=== PATIENT | female | born 1985 | race Caucasian/White ===

== ENCOUNTER 2019-12-23 16:18 | Emergency (ER) | payer OTHER, SELFPAY ==
[2019-12-23 16:28] VITALS: BP 134/85; PULSE 84; RESP 16; TEMP 36.1; O2SAT 100
--- NOTE | 2019-12-23 16:29 | ED.GENADULT ---
HPI - General Adult General Chief complaint: Upper Respiratory Infection Stated complaint: Sore Throat,Congestion Time Seen by Provider: 12/23/19 16:29 Source: patient Mode of arrival: ambulatory Limitations: no limitations History of Present Illness HPI narrative: 34-year-old female patient presents to the [facility] with complaints of cold symptoms that started abruptly yesterday. Patient states that she is been having body aches and just overall not feeling well. Patient states she started having a sore throat today and a stuffy nose. Denies any fevers that she is aware of. Denies any ear pain. Patient denies any coughing, chest pain, shortness of breath or abdominal pain. 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 Denies getting a flu shot this year. Related Data Allergies Allergy/AdvReac Type Severity Reaction Status Date / Time No Known Allergies Allergy Verified 11/24/19 16:34 Review of Systems Review of Systems: Narrative: CONSTITUTIONAL: Denies fever, chills, or sweats. EYES: Denies visual changes, redness, or discharge. ENT: Positive rhinorrhea, congestion, sore throat, denies otalgia. CARDIOVASCULAR: Denies chest pain, palpitations, or edema. RESPIRATORY: Denies cough or dyspnea. GASTROINTESTINAL: Denies abdominal pain, nausea, vomiting, or diarrhea. GENITOURINARY: Denies dysuria or hematuria. SKIN: Denies rash or itching. MUSCULOSKELETAL: Denies back pain, joint pain, or myalgia. NEUROLOGIC: Denies headache, numbness, or weakness. PSYCHIATRIC: Denies anxiety or depression. [facility] Past Medical History Medical History Arthritis Chlamydia GERD (gastroesophageal reflux disease) Injury of small toe Kidney stones Seasonal allergies Surgical History Surgical History H/O dilation and curettage H/O tubal ligation Family History Family History Father Hypertension Mother Hypertension Grandparent Hypertension Cerebrovascular accident Family history of malignant neoplasm of breast Family history of coronary artery disease Other Family history of malignant neoplasm of uterus Social History Social History Smoking status: Former smoker Alcohol intake: never Comments At the time of my signature I agree with nursing past medical history, surgical, social, and family history. There is no relevant family history pertinent to the presenting complaint. Exam Narrative: Exam Narrative: GENERAL: Well-appearing, well-nourished, and in no acute distress. HEAD: Normocephalic, atraumatic. No tenderness noted to frontal and maxillary sinuses on palpation. EYES: PERRLA and EOMI. ENT: Nares with erythema and edema noted bilaterally, patent, no rhinorrhea or epistaxis. Mucous membranes moist. Posterior pharynx does have some petechiae noted but no tonsil enlargement no exudates or lesions present. Bilateral TMs are clear with no erythema or foreign bodies in the canal. NECK: Supple. No lymphadenopathy CHEST: Clear to auscultation. No respiratory distress. HEART: Regular rate and rhythm. No murmur heard. Normal peripheral pulses. ABDOMEN: Soft, nontender, nondistended, normal active bowel sounds. EXTREMITIES: Normal range of motion. No edema. SKIN: Warm, dry, no rash. NEURO: No focal deficits. Alert and oriented x3. Course Reevaluation(s) Reevaluation #1: Notify patient that she is negative today for influenza and strep. Discussed with her this is probably most likely some type of virus that is causing her symptoms. Discussed with patient she can take Tylenol Motrin as needed for body aches pains and fevers. Discussed with her that she can take [id number] cold and flu medication to help with her other symptoms and I will write her off of work for tomorrow. Discussed with her she ne
== END 2019-12-23 16:55 | disposition home or self-care (01) ==
PROVIDERS: Emergency Provider Nurse Practitioner Family; PCP Family Medicine
DX: J06.9 Acute upper respiratory infection, unspecified (principal); M19.90 Unspecified osteoarthritis, unspecified site; K21.9 Gastro-esophageal reflux disease without esophagitis
CPT/HCPCS: 87081; 87804; 87880; 99213; G0463

== ENCOUNTER 2020-08-14 08:25 | Outpatient (CLI) | payer OTHER, SELFPAY ==
--- NOTE | ~2020-08-14 | US_ITS ---
EXAMINATION: US pelvic complete w TV DATE: 08/14/2020 08:58 INDICATION: Irregular menses Comparison:No prior studies for comparison. TECHNIQUE: Multiple transabdominal and endovaginal sonographic images of the pelvis performed. FINDINGS: The uterus measures 8.3 x 4.9 x 3.5 cm. The endometrial complex measures 6 mm. The right ovary measures 2.6 x 1.6 x 1.8 cm and the left ovary measures 2.5 x 2.3 x 1.9 cm. There ar e small follicles in each ovary. There is no free fluid in the pelvis. There are no abnormal masses seen on either side. IMPRESSION: 1. Unremarkable pelvic ultrasound. Reviewed, dictated and finalized at location A.
== END 2020-08-14 08:26 | disposition home or self-care (01) ==
LOC: ANHIMG 08:27
PROVIDERS: PCP Family Medicine; Visit Provider Student in an Organized Health Care Education/Training Program
DX: N92.0 Excessive and frequent menstruation with regular cycle (principal); N92.6 Irregular menstruation, unspecified
CPT/HCPCS: 76830; 76856

== ENCOUNTER 2020-10-02 12:00 | Outpatient (NON) | payer OTHER, SELFPAY ==
[2020-10-05 12:54] LABS: SARS-CoV-2 RNA PCR Negative
== END 2020-10-02 12:01 ==
LOC: ANHCOVIDDT 12:02
PROVIDERS: PCP Family Medicine; Visit Provider Family Medicine
DX: Z20.828 Contact with and (suspected) exposure to other viral communicable diseases (principal); R68.89 Other general symptoms and signs
CPT/HCPCS: 87635; C9803; U0003

== ENCOUNTER 2020-11-22 13:02 | Emergency (ER) | payer OTHER, SELFPAY ==
--- NOTE | ~2020-11-22 | CT_ITS ---
EXAMINATION: CT abdomen pelvis w con DATE: 11/22/2020 14:09 INDICATION: Low abdominal pain. TECHNIQUE: Computed tomography (CT) of the abdomen and pelvis was performed with 100 mL Omnipaque 350 intravenous contrast. Automated exposure control and iterative reconstruction technique were employe d. The dose-length product was 499.08 mGy-cm. COMPARISON: CT abdomen and pelvis 11/03/2019 FINDINGS: The visualized portions of the lung bases demonstrate mild atelectasis. No pleural effusion . The heart size is normal. No pericardial effusion. The liver, gallbladder, spleen, pancreas, adrena l glands, and kidneys are normal. There is wall thickening of the sigmoid colon with adjacent fat str anding centered at a diverticulum, consistent with diverticulitis. There is a small volume of ascites in left paracolic gutter and in the pelvis. There are no dilated loops of bowel. The appendix is nor mal. There is an intrauterine device in expected position. There is a 2.6 cm cyst in left ovary, like ly a dominant follicle. There are no pathologically enlarged lymph nodes. There is mild lumbar spondy losis. IMPRESSION: 1. Acute sigmoid diverticulitis. No perforation or abscess. 2. Small volume of ascites. Reviewed, dictated and finalized at location A. CIPAL LIBRARIAN
[2020-11-22 13:06] VITALS: BP 132/84; PULSE 91; RESP 21; TEMP 36.1; O2SAT 100
[2020-11-22 13:30] LABS: Basophils Absolute Auto 0.1 K/mm3 (0.0-0.1); Basophils Percent Auto 0.3 % (0.2-1.2); Eosinophils Absolute Auto 0.2 K/mm3 (0-0.3); Eosinophils Percent Auto 0.9 % (0-4.4); Hematocrit 41.3 % (37.0-47.0); Hemoglobin 14.4 g/dL (12.0-15.0); Immature Granulocyte Absolute 0.08 K/mm3 (0.00-0.031); Immature Granulocyte Percent A 0.4 % (0-0.5); Lymphocytes Absolute Auto 1.86 K/mm3 (0.9-3.2); Lymphocytes Percent Auto 9.6 % (18.3-44.2); Mean Corpuscular HGB Conc 34.9 g/dl (32-36); Mean Corpuscular Hemoglobin 32.2 pg (26-34); Mean Corpuscular Volume 92.4 fl (80-100); Mean Platelet Volume 11.3 fl (7.4-10.4); Monocytes Absolute Auto 0.7 K/mm3 (0.1-0.6); Monocytes Percent Auto 3.7 % (2.6-8.5); Neutrophils Absolute Auto 16.4 K/mm3 (1.3-6.7); Neutrophils Percent Auto 85.1 % (45.5-73.1); Platelet Count Result 195 k/mm3 (150-375); Red Blood Count 4.47 M/mm3 (4.2-5.4); Red Cell Distribution Width 11.9 % (11.5-14.5); White Blood Count 19.3 K/mm3 (4.5-10.0)
--- NOTE | 2020-11-22 13:33 | ED.ABDPAIN ---
HPI - Abdominal Pain General Chief Complaint: Abdominal Pain Stated Complaint: ABD pain since last night Time Seen by Provider: 11/22/20 13:18 Source: patient Mode of arrival: ambulatory Limitations: no limitations History of Present Illness HPI narrative: This patient is a 35 year old female who presents for evaluation of lower abdominal. She developed severe abdominal pain that she states is located from her umbilicus to her pelvic. She took ibuprofen last night but she states she had no relief. She describes constant pain as severe cramps. She has nausea. She denies associated diarrhea, constipation, vomiting or fever. She had an IUD placed [address] Shields. She states this is around the time she would have her cycle but last month she did not have this much pain. Exacerbating factors: movement Related Data Home Medications Medication Instructions Recorded Confirmed levonorgestrel 20 mcg/24 hours (6 1 device INTRAUTERINE ONCE 10/11/20 10/18/20 yrs) 52 mg intrauterine device Allergies Allergy/AdvReac Type Severity Reaction Status Date / Time No Known Allergies Allergy Verified 11/22/20 13:13 Review of Systems Review of Systems: All systems reviewed & are unremarkable except as noted in HPI and below Constitutional: Constitutional: Denies chills and Denies fever(s) Gastrointestinal: Gastrointestinal: Reports abdominal pain and Reports nausea Genitourinary: Genitourinary: Denies hematuria, Denies nocturia, Denies flank pain and Denies vaginal discharge Musculoskeletal: Musculoskeletal: Denies back pain PMFSH Past Medical History Medical History Arthritis Chlamydia GERD (gastroesophageal reflux disease) Injury of small toe Kidney stones Seasonal allergies Vaginal delivery x3 Surgical History Surgical History H/O dilation and curettage x 3 after each vaginal delivery H/O tubal ligation Family History Family History Father Hypertension Mother Hypertension Grandparent Hypertension Cerebrovascular accident Family history of malignant neoplasm of breast Family history of coronary artery disease Other Family history of malignant neoplasm of uterus Social History Social History Smoking status: Current every day smoker Tobacco type: cigarettes Alcohol intake: current Substance use: never Gender identity (if verbalized by the patient): Female Exam Const: General: alert Orientation/consciousness: patient oriented x3 Eyes: EOM: EOMs intact bilaterally Resp: Effort & Inspection: normal respiratory effort and no retractions Auscultation: clear to auscultation bilaterally Cardio: Rate: regular rate Rhythm: regular rhythm Heart sounds: no murmurs GI: GI Palp: Yes Soft to palpation, Yes Tenderness to palpation present (GI) (LLQ), Yes Guarding due to palpation present (GI) and No Rigid due to palpation Auscultation: normal bowel sounds Skin: General skin exam: normal color Rashes: no rashes Neuro: General: patient oriented x3 and moves all extremities Psych: Mental Status: mental status grossly normal Affect: normal affect Course Reevaluation(s) Reevaluation #1: I have discussed with patient that she was found to have diverticulitis and an ovarian cyst. She will follow up with DR. Shields regarding her ovarian cyst. Date: 11/22/20 Time: 15:36 Vital Signs Vital signs: Vital Signs Temperature 97.0 F L 11/22/20 13:06 Pulse Rate 91 11/22/20 13:06 Respiratory Rate 21 H 11/22/20 13:06 Blood Pressure 132/84 11/22/20 13:06 Pulse Oximetry 100 11/22/20 13:06 Temperature 97.0 F L 11/22/20 13:06 Pulse Rate 88 11/22/20 15:18 Respiratory Rate 16 11/22/20 15:18 Blood Pressure 142/84 H
[2020-11-22 13:46] LABS: Alanine Aminotransferase 27 U/L (4-35); Albumin Level 4.2 g/dL (3.5-5.1); Alkaline Phosphatase 57 U/L (38-126); Anion Gap 4 mmol/L (8-16); Aspartate Amino Transferase 22 U/L (14-36); Bilirubin,Total 0.7 mg/dL (0.2-1.3); Blood Urea Nitrogen 6 mg/dL (7-17); Carbon Dioxide 25 mmol/L (22-30); Chloride 104 mmol/L (98-107); Estimated CRCL calculation 108 ml/min; Estimated Glomerular Filt Rate > 60; Glucose 97 mg/dL (65-105); Lipase 59 U/L (23-300); Potassium 4.1 mmol/L (3.4-5.0); Sodium 133 mmol/L (137-145)
[2020-11-22 13:51] LABS: Add Urine Microscopic? YES; Appearance Urine Clear (Clear); Bacteria Urine Trace /hpf; Bilirubin Urine Negative (Negative); Blood Urine Negative (Negative); Color Urine Yellow (Yellow); Glucose Urine UA Negative (Negative); Ketones Urine Negative (Negative); Leukocyte Esterase Ur Negative LEU/UL (Negative); Mucus Urine Heavy /lpf; Nitrate Urine Negative (Negative); Protein Urine 1+ mg/dL (Negative); RBC Urine 0-2 /hpf (0-2); Specific Grav Ur 1.023 (1.001-1.035); Squamous Epithelial Cell Urine Many /hpf (Few); Urobilinogen Urine Negative mg/dL (<2.0); WBC Urine 0-3 /hpf
[2020-11-22] MEDS: MORPHINE SULFATE (*CRX) 4 MG/ML INJ IV PUSH (14:05)
[2020-11-22] MEDS: LACTATED RINGERS 1,000 ML 999 ML IV CONT (14:05)
[2020-11-22] MEDS: ONDANSETRON INJ 4 MG/2 ML VIAL IV PUSH (14:05)
[2020-11-22] MEDS: metroNIDAZOLE 250 MG TABLET 500 MG PO (15:17)
[2020-11-22] MEDS: CIPROFLOXACIN 500 MG TAB PO (15:17)
[2020-11-22 15:18] VITALS: BP 142/84; PULSE 88; RESP 16; O2SAT 98
== END 2020-11-22 15:55 | disposition home or self-care (01) ==
PROVIDERS: Emergency Medicine; Emergency Provider General Practice; PCP Family Medicine
DX: K57.92 Diverticulitis of intestine, part unspecified, without perforation or abscess without bleeding (principal); N83.202 Unspecified ovarian cyst, left side; F17.210 Nicotine dependence, cigarettes, uncomplicated; M19.90 Unspecified osteoarthritis, unspecified site; K21.9 Gastro-esophageal reflux disease without esophagitis
CPT/HCPCS: 36415; 74177; 80053; 81001; 81025; 83690; 85025; 96374; 96375; 99284; A9270; J2270; J2405; J7120; Q9967

== ENCOUNTER → 2022-05-11 14:16 | Outpatient (CLI) | payer OTHER, SELFPAY ==
--- NOTE | ~2022-05-11 | US_ITS ---
EXAMINATION: US pelvic complete w TV DATE: 05/11/2022 14:48 INDICATION: Pelvic cramping TECHNIQUE: Multiple transabdominal and endovaginal sonographic images of the pelvis were obtained. COMPARISON: None. FINDINGS: The uterus measures 8.9 x 3.8 x 4.2 cm. The endometrial complex measures 6 mm. The IUD appe ars to be in expected location. The right ovary measures 2.8 x 1.4 x 1.7 cm. The left ovary measures 3.1 x 3.3 x 3.8 cm. There is normal vascular flow in the ovaries. There is no free fluid in the pelvi s. IMPRESSION: 1. IUD in expected position. Reviewed, dictated and finalized at location F.
== END ==
PROVIDERS: PCP Family Medicine; Visit Provider Student in an Organized Health Care Education/Training Program
DX: Z30.430 Encounter for insertion of intrauterine contraceptive device (principal)
CPT/HCPCS: 76830; 76856

== ENCOUNTER 2022-08-29 11:52 | Outpatient (CLI) | payer OTHER, SELFPAY ==
--- NOTE | ~2022-08-29 | CT_ITS ---
EXAMINATION: CT abdomen pelvis w con INDICATION: Abdominal pain TECHNIQUE: Computed tomographic images of the abdomen and pelvis were obtained after the administrati on of 100 cc of Omnipaque 350 intravenous contrast. The dose-length product (DLP) was 513.51 mGy-cm. Automated exposure control and iterative reconstruction technique were employed. COMPARISON: 11/22/2020 FINDINGS: The lung bases are clear. The heart size is normal. The liver, spleen, pancreas, gallbladde r, and adrenal glands are normal. The kidneys are unremarkable. No pathologically enlarged abdominal or pelvic lymph nodes are identified. There is no free intraperitoneal gas or evidence of bowel obstr uction. Colonic diverticulosis is present without evidence of diverticulitis. A trace amount of free fluid in the pelvis is likely physiologic. There is a 2.1 cm cyst of the left ovary. An IUD is in exp ected position. The appendix is normal. IMPRESSION: 1. No CT correlate for the patient's symptoms. Diverticulosis without evidence of diverticulitis. Reviewed, dictated and finalized at location A.
== END 2022-08-29 11:53 | disposition home or self-care (01) ==
LOC: ANHIMG 11:54
PROVIDERS: PCP Family Medicine; Visit Provider Nurse Practitioner Family
DX: R10.9 Unspecified abdominal pain (principal); K57.30 Diverticulosis of large intestine without perforation or abscess without bleeding; Z97.5 Presence of (intrauterine) contraceptive device
CPT/HCPCS: 74177; Q9967

== ENCOUNTER 2022-10-11 08:00 | Outpatient (NON) | payer OTHER, SELFPAY | END 2022-10-11 08:01 | disposition home or self-care (01) | LOC: ANHLAB 10-16 08:31 | PROVIDERS: PCP Family Medicine; Visit Provider Internal Medicine Gastroenterology | DX: R10.9 Unspecified abdominal pain (principal); K20.90 Esophagitis, unspecified without bleeding; D12.0 Benign neoplasm of cecum | CPT/HCPCS: 88305 ==

== ENCOUNTER 2022-10-11 10:55 | Day surgery (SDC) | payer OTHER, SELFPAY ==
[2022-09-15 10:33] VITALS: BMI 30.4
[2022-09-27 11:29] VITALS: BMI 30.2
--- NOTE | 2022-10-11 10:04 | P.PNAN_ITS ---
Anes - Initial Pre Proc Eval Procedure: Operation Date: 10/11/22 14:00 Proposed Procedures p Esophagogastroduodenoscopy - Mack Deutsch MD s Diagnostic Colonoscopy - Mack Deutsch MD Date/Time: 10/11/22 10:04 Surgeon: Mack Deutsch MD Pre Op Diagnosis: Nausea, Abdominal Pain and Constipation Patient Data Age: 36 Gender: F Height: 1.63 m Weight: 80 kg Allergies Allergy/AdvReac Type Severity Reaction Status Date / Time No Known Allergies Allergy Verified 10/11/22 11:17 Home Medications Medication Instructions Recorded Confirmed Type levonorgestrel 20 mcg/24 hours (8 1 device intrauterine ONCE 10/11/20 10/11/22 History yrs) 52 mg intrauterine device (Mirena) ibuprofen 600 mg tablet 600 mg PO Q6H PRN pain #14 tabs 11/22/20 10/11/22 Rx omeprazole 40 mg capsule,delayed 40 mg PO DAILY #30 caps 09/11/22 10/11/22 Rx release ondansetron 4 mg disintegrating 4 mg PO Q6H PRN nausea and 09/13/22 10/11/22 Rx tablet vomiting #30 tabs Patient hx anesthesia problems: none Family hx anesthesia problems: none Results Review: All pre-operative results and documents have been reviewed as part of the pre-operative evaluation. [facility] Past Medical History Medical History (Updated 09/13/22 @ 16:20 by ERIC JacoboN-C) Arthritis BMI 29.0-29.9,adult BMI 30.0-30.9,adult Chlamydia Diverticulitis GERD (gastroesophageal reflux disease) Injury of small toe Kidney stones Seasonal allergies Tobacco abuse Vaginal delivery x3 Surgical History Surgical History H/O dilation and curettage x 3 after each vaginal delivery H/O tubal ligation Family History Family History Father Hypertension Mother Hypertension Grandparent Hypertension Cerebrovascular accident Family history of malignant neoplasm of breast Family history of coronary artery disease Other Family history of malignant neoplasm of uterus Social History Social History Smoking status: Never smoker Tobacco type: cigarettes Second hand tobacco smoke exposure: No Alcohol intake: current Alcohol use details: socially Substance use: never Living arrangements: with family Gender identity (if verbalized by the patient): Female Spiritual care concerns: No Anes - Eval Final PreProcedure Day of Procedure 10/11/22 10:04 Patient weight: overweight Heart: regular rate and rhythm Lungs: clear to auscultation Airway: Mallampati scale class II Neurological: alert and oriented Last oral intake: >/= 8 hours ASA classification: II Emergent: no Anesthetic plan: proceed Anesthesia type and monitoring: general GIVS and standard monitoring Results Review: All pre-operative results and documents have been reviewed as part of the pre- operative evaluation. Informed Consent: The patient's anesthetic plan and its attendant risks and benefits were discussed with the patient/family/POA. Questions were solicited and answers provided to the satisfaction of the patient/family/POA.
[2022-10-11 11:15] VITALS: BP 120/91; PULSE 80; RESP 20; TEMP 37.2; O2SAT 100
[2022-10-11] MEDS: LACTATED RINGERS 1,000 ML 150 ML IV CONT (11:39)
--- NOTE | 2022-10-11 12:16 | WPDHPUPDATE1 ---
History and Physical Update Update Date/Time: 10/11/22 12:16 History and Physical has been reviewed, including an updated exam of the patient. There are NO changes in the patient's condition. Risks, benefits, and alternatives have been discussed and questions answered. Patient agrees to proceed with procedure.
[2022-10-11 12:44] VITALS: BP 100/68; PULSE 76; RESP 14; O2SAT 98
[2022-10-11 12:54] VITALS: BP 122/94; PULSE 83; RESP 15; O2SAT 98
[2022-10-11 13:04] VITALS: BP 117/62; PULSE 62; RESP 15; O2SAT 98
--- NOTE | 2022-10-11 13:23 | WPDANESPN ---
Anes - Prog Note Post-Op Date/Time: 10/11/22 13:23 Cardiovascular status: normal Respiratory status: normal Airway patency: baseline Mental status: baseline Post-Op hydration status: normal Vital Signs: Last Vital Signs Temp 37.2 C 10/11/22 11:15 Pulse 62 10/11/22 13:04 Resp 15 10/11/22 13:04 BP 117/62 10/11/22 13:04 Pulse Ox 98 10/11/22 13:04 O2 Del Method Room Air 10/11/22 13:04 Pain Score (VAS): 0 I/O: Intake & Output 10/10/22 10/11/22 10/11/22 23:59 07:59 15:59 Intake Total 500 Balance 500 Post-procedural complaints: none Patient Feedback: Patient satisfied with anesthetic care. Other Findings: Patient vital signs back to baseline. Patient denies nausea and vomiting. Patient's pain under control. Patient OK for discharge.
== END 2022-10-11 13:24 | disposition home or self-care (01) ==
PROVIDERS: PCP Family Medicine; Visit Provider Internal Medicine Gastroenterology
PROC: 0DJ08ZZ Inspection of Upper Intestinal Tract, Via Natural or Artificial Opening Endoscopic (ICD-10-PCS; CPT 43235; principal; 2022-10-11 14:00)
PROC: 0DJD8ZZ Inspection of Lower Intestinal Tract, Via Natural or Artificial Opening Endoscopic (ICD-10-PCS; CPT 45378; 2022-10-11 14:00)
DX: R10.9 Unspecified abdominal pain (principal)
CPT/HCPCS: 45385; 43239

== ENCOUNTER 2023-10-10 09:18 | Outpatient (CLI) | payer OTHER, SELFPAY ==
--- NOTE | ~2023-10-10 | MMUS_ITS ---
EXAMINATION: MM diagnostic jose rafael BI w paulino, US breast BI complete HISTORY: Possible right breast lump TECHNIQUE: Full field and spot ML, MLO and CC 3-D tomosynthesis images of both breasts were performed and synthetic 2-D images were generated. CAD analysis was submitted and interpreted. High resolution bilateral complete breast ultrasound examination including all 4 quadrants and subareolar area of ea ch breast was performed. COMPARISON: 09/06/2017 bilateral diagnostic mammogram BREAST PARENCHYMAL COMPOSITION: The breasts are heterogeneously dense, which may obscure small masses . FINDINGS: MAMMOGRAPHIC FINDINGS: A circumscribed 1 cm mass is noted in the upper outer right breast. Bilateral heterogeneously dense stroma may obscure additional masses. Bilateral complete breast ultra sound examination therefore was performed. ULTRASOUND: Right breast: 6:00 5 cm from nipple: 2.6 x 5 mm cyst 7:00 5 cm from nipple: Parallel circumscribed sonolucency measuring 2.3 x 7.9 mm, with through transm ission, consistent with simple cyst 9:00 4 cm from nipple: Probable small benign lymph node 10:00 3 cm from nipple: Irregular heterogeneous hypoechoic solid lesion measuring 1.8 x 1.3 cm, with internal vascularity. Ultrasound-guided biopsy is recommended. Left breast: 4:00 4 cm from nipple: 1.7 x 6 mm parallel circumscribed hypoechoic lesion, benign in appearance. IMPRESSION: 1. Right breast 1.8 x 1.3 cm irregular hypoechoic solid mass with internal vascularity at 10:00 3 cm from nipple 2. Ultrasound-guided biopsy of right breast 10:00 lesion should be considered BI-RADS category 4, suspicious findings. Dr. Powers telephoned the report and ultrasound biopsy recommendation on 10/10/2023 at 1420 hours to Alexia nielsen R.N. Reviewed, dictated and finalized at location A. ITURE SALES ASSOCIATE IMPRESSION: 1. Right breast 1.8 x 1.3 cm irregular hypoechoic solid mass with internal vasc ularity at 10:00 3 cm from nipple 2. Ultrasound-guided biopsy of right breast 10:00 lesion should be considered BI-RADS category 4, suspicious findings. Dr. Powers telephoned the report and ultrasound biopsy recommendation on 10/10/20 at 1420 hours to Kojo Carrillo. IMPRESSION: 1. Right breast 1.8 x 1.3 cm irregular hypoechoic solid mass with internal vasc ularity at 10:00 3 cm from nipple 2. Ultrasound-guided biopsy of right breast 10:00 lesion should be considered BI-RADS category 4, suspicious findings. Dr. Powers telephoned the report and ultrasound biopsy recommendation on 10/10/20 at 1420 hours to Panchito Carrillo
--- NOTE | ~2023-10-10 | US_ITS ---
EXAMINATION: US pelvic complete w TV DATE: 10/10/2023 15:35 INDICATION: Abnormal uterine bleeding Comparison:05/11/2022 TECHNIQUE: Multiple transabdominal and endovaginal sonographic images of the pelvis performed. FINDINGS: The uterus measures 10.6 x 4.7 x 3.8 cm. There is an IUD present in the endometrium. The en dometrial complex measures 5.5 mm. The right ovary measures 1.9 x 1.6 x 1.3 cm and the left ovary measures 1.9 x 1.4 x 1.5 cm. There ar e small follicles in each ovary. Normal doppler signal in both ovaries. There is no free fluid in the pelvis. There are no abnormal masses seen on either side. IMPRESSION: 1. Unremarkable pelvic ultrasound. Reviewed, dictated and finalized at location B. GANG SUPERVISOR
[2023-10-10 09:46] LABS: Hematocrit 40.7 % (37.0-47.0); Hemoglobin 13.5 g/dL (12.0-15.0); Mean Corpuscular HGB Conc 33.2 g/dl (32-36); Mean Corpuscular Hemoglobin 31.3 pg (26-34); Mean Corpuscular Volume 94.4 fl (80-100); Mean Platelet Volume 11.5 fl (7.4-10.4); Platelet Count Result 216 k/mm3 (150-375); Red Blood Count 4.31 M/mm3 (4.2-5.4); Red Cell Distribution Width 11.2 % (11.5-14.5); White Blood Count 6.8 K/mm3 (4.5-10.0)
[2023-10-10 09:57] LABS: Alanine Aminotransferase 24 U/L (6-35); Albumin Level 4.3 g/dL (3.5-5.1); Alkaline Phosphatase 37 U/L (38-126); Anion Gap 7 mmol/L (8-16); Aspartate Amino Transferase 21 U/L (14-36); Bilirubin,Total 0.5 mg/dL (0.2-1.3); Blood Urea Nitrogen 7 mg/dL (7-17); Calcium 8.8 mg/dL (8.4-10.2); Carbon Dioxide 25 mmol/L (22-30); Chloride 107 mmol/L (98-107); Cholesterol 220 mg/dL (0-200); Estimated Glomerular Filt Rate > 60; Glucose 102 mg/dL (65-110); HDL Direct 48 mg/dL; Potassium 4.1 mmol/L (3.4-5.0); Sodium 139 mmol/L (137-145); Triglycerides 113 mg/dL (<150)
[2023-10-10 10:08] LABS: LDL Cholesterol Direct 136 mg/dL
[2023-10-10 10:26] LABS: Thyroid Stimulating Hormone 0.279 uIU/mL (0.465-4.680)
[2023-10-10 10:34] LABS: Vitamin D 25 Hydroxy 61.8 ng/mL
== END 2023-10-10 09:19 | disposition home or self-care (01) ==
PROVIDERS: PCP Nurse Practitioner Family; Referring Provider Nurse Practitioner Family; Visit Provider Registered Nurse
DX: N63.0 Unspecified lump in unspecified breast (principal); E04.9 Nontoxic goiter, unspecified; R63.5 Abnormal weight gain; E55.9 Vitamin D deficiency, unspecified; R10.2 Pelvic and perineal pain; R92.8 Other abnormal and inconclusive findings on diagnostic imaging of breast
CPT/HCPCS: 36415; 76641; 76830; 76856; 77062; 77066; 80053; 80061; 82306; 84436; 84443; 85027; G0279

== ENCOUNTER → 2023-10-10 10:07 | Outpatient (CLI) | payer OTHER, SELFPAY ==
--- NOTE | ~2023-10-10 | US_ITS ---
US thyroid INDICATION: Abnormal weight gain. Nontoxic thyroid goiter. TECHNIQUE: Real-time sonographic images of the thyroid gland were obtained. COMPARISON: No prior studies for comparison. FINDINGS: The right thyroid lobe measures 5.3 x 1.4 x 1.7 cm. The left thyroid lobe measures 5.2 x 1 .1 x 2 cm. Thyroid gland is heterogeneous with bilateral thyroid nodules, largest in the right lobe m easuring 6 mm being hypoechoic, solid, wider than tall, smoothly marginated without echogenic foci, T R 4. Largest in the left lobe measures 5 mm, hypoechoic, solid, wider than tall without echogenic foc i and smoothly marginated, TR 4. IMPRESSION: 1. Small bilateral thyroid nodules which do not meet sonographic criteria for biopsy, most likely be nign multinodular goiter. Reviewed, dictated and finalized at location B. LE FEEDER IMPRESSION: 1. Small bilateral thyroid nodules which do not meet sonographic criteria for biopsy, most likely benign multinodular goiter.
== END ==
PROVIDERS: PCP Family Medicine; Visit Provider Nurse Practitioner Family
DX: R63.5 Abnormal weight gain (principal); E04.2 Nontoxic multinodular goiter
CPT/HCPCS: 76536

== ENCOUNTER 2023-10-26 09:37 | Outpatient (CLI) | payer OTHER, SELFPAY ==
--- NOTE | ~2023-10-26 | MR_ITS ---
EXAMINATION: MR breast BI wo/w con INDICATION: Indeterminate right breast mass TECHNIQUE: Axial VIBRANT pre and dynamic post contrast, Sagittal VIBRANT post contrast, Axial T2 STIR ASSET COMPARISON: Diagnostic mammogram and ultrasound dated 10/10/2023 CONTRAST: Multihance, 16 cc BREAST COMPOSITION: Heterogeneous fibroglandular tissue FINDINGS: RIGHT BREAST: There is moderate background parenchymal enhancement. There is an approximately 2.1 x 1 .3 cm T1 isointense, T2 hypointense mass, versus two adjacent masses, in the upper outer quadrant of the right breast at the 10:00 location, 5 cm from the nipple. There is questionable dark nonenhancing internal septation. Enhancement is predominantly plateau with some areas of washout. No pathological ly enlarged right-sided lymph nodes are identified. LEFT BREAST: There is moderate background parenchymal enhancement. No abnormal enhancement is present after contrast administration. No pathologically enlarged axillary or internal mammary lymph nodes a re identified. IMPRESSION: 1. Indeterminate mass in the upper outer quadrant of the right breast. Ultrasound-guided biopsy is re commended. BI-RADS category 4, suspicious findings. Reviewed, dictated and finalized at location A. USEMENT PARK RIDE MECHANIC IMPRESSION: 1. Indeterminate mass in the upper outer quadrant of the right breast. Ultrasou nd-guided biopsy is recommended. BI-RADS category 4, suspicious findings.
== END 2023-10-26 09:38 | disposition home or self-care (01) ==
PROVIDERS: PCP Family Medicine; Visit Provider Physician Assistant Surgical
DX: N63.10 Unspecified lump in the right breast, unspecified quadrant (principal); R92.8 Other abnormal and inconclusive findings on diagnostic imaging of breast
CPT/HCPCS: 77049; A9577; C8908

== ENCOUNTER 2023-10-30 10:01 | Outpatient (CLI) | payer OTHER, SELFPAY ==
--- NOTE | ~2023-10-30 | MMUS_ITS ---
US breast biopsy RT w image, MM post biopsy invasive RT EXAMINATION: US GUIDED NEEDLE BIOPSY WITH VACUUM ASSISTANCE DATE: 10/30/2023 11:20 BUSINESS INTELLIGENCE CONSULTANT INDICATION: Right breast mass seen on recent examination. Ultrasound-guided core biopsy is requested to evaluate for malignancy. TECHNIQUE AND FINDINGS: The risks and potential benefits of the procedure were discussed with the patient, and written inform ed consent was obtained. After sterile preparation of the right breast, 1% lidocaine was utilized fo r local anesthesia. 1% lidocaine with epinephrine was used for deep anesthesia. A 10G vacuum-assisted biopsy gun needle was advanced through to the outer edge of the region of inter est from a superior approach utilizing sonographic guidance. A total of 5 tissue core samples were o btained through the lesion. An Inrad tissue marker clip was then placed at the biopsy site. Hemostas is was achieved. The patient tolerated procedure well and there was no evidence of immediate complication. The patien t was given verbal instructions partly is from the department. Right breast mammograms to document t issue marker clip placement. The tissue samples were submitted to surgical pathology for histologic a nalysis. IMPRESSION: 1. Successful ultrasound-guided vacuum-assisted biopsy of right breast mass with tissue marker place ment. Please refer to pathology report for histologic analysis. Reviewed, dictated and finalized at location A. NESS INTELLIGENCE CONSULTANT IMPRESSION: 1. Successful ultrasound-guided vacuum-assisted biopsy of right breast mass wi th tissue marker placement. Please refer to pathology report for histologic isabella lysis.
== END 2023-10-30 10:02 | disposition home or self-care (01) ==
PROVIDERS: PCP Family Medicine; Visit Provider Surgery
DX: N63.10 Unspecified lump in the right breast, unspecified quadrant (principal); D24.1 Benign neoplasm of right breast; R92.8 Other abnormal and inconclusive findings on diagnostic imaging of breast
CPT/HCPCS: 19083; 88305

== ENCOUNTER 2023-11-09 08:14 | Outpatient (CLI) | payer OTHER, SELFPAY ==
--- NOTE | ~2023-11-09 | XR_ITS ---
MODIFIED ESOPHAGRAM HISTORY: Dysphagia. TECHNIQUE: Modified barium esophagram was performed on 11/09/2023. I administered fluoroscopy and per formed the exam with speech pathologist. Patient was seated for lateral fluoroscopic imaging for ing estion of thin liquids, pudding, solids and quantified amounts, followed by thin liquids in uncontrol led amounts. This was recorded on tape. A single fluoroscopic spot image was also recorded. The DAP f or this procedure was 0.679 Gycm2. The amount of fluoroscopy time used during this procedure was 1.0 minutes. FINDINGS: Oral stage: Adequate function. Pharyngeal stage: Adequate function. Cervical/esophageal stage: Adequate function. IMPRESSION: Patient tolerated regular consistency oral feedings in the upright position. Please danny elate with speech pathologist findings and specific feeding recommendations. Reviewed, dictated and finalized at location A. GANG WORKER IMPRESSION: Patient tolerated regular consistency oral feedings in the upright position. Please correlate with speech pathologist findings and specific feedi ng recommendations.
--- NOTE | 2023-11-09 09:23 | REHSTMBS ---
Assessment and note entered by Dulce Horn, COIL TAPER Modified Barium Swallow Evaluation Feeding Type Recommended Oral Food Consistency Regular, Level 7 Liquid Consistency Thin (0) ST Clinical Summary MODIFIED BARIUM SWALLOW STUDY This patient was seen for a Modified Barium Swallow at the request of her physician. Patient reports that she has been having difficulty swallowing pills recently, feeling that they were hanging up or getting stuck in her throat after swallowing. She denied difficulty swallowing other foods and liquids but did admit that very occasionally, a piece of food with a certain texture (she mentioned a taco) may cause a similar feeling. Patient stated that she has been told that she has enlarged thyroid nodules and that these may be causing the pills to hang up. Today the patient was viewed in the lateral position to the level of C5/C6. She was presented with uncontrolled thin liquid contrast medium per cup and per straw, pudding mixed with semi-solid medium, and cracker coated with the semi-solid mixture. She was also presented with two barium pills. Oral Stage: No impairment noted. Pharyngeal Stage: No impairment noted. Cricopharyngeal Stage: No impairment noted. Patient reported after each barium pill that she still felt the pill(s) were in her throat, not both at the same time, but independently after each attempt. She was shown the monitor and she could see that the first pill was not in her throat, and she watched the second swallow and so it go down. We concluded that perhaps the pills are rubbing against the pharyngeal wall causing her to have a sensitive reaction. Also, patient did not mention this but her medical history includes gastroesophageal reflux disease (GERD), and this also may contribute to a feeling of fullness in the pharynx after swallow in spite of pharynx being clear. Patient was instructed in the use of head flexion (chin tucked) to assist with movement of material
[2023-11-09 10:30] LABS: T4 Thyroxine 9.56 ug/dL (5.53-11.0)
[2023-11-09 10:42] LABS: Thyroid Stimulating Hormone 0.301 uIU/mL (0.465-4.680)
== END 2023-11-09 08:15 | disposition home or self-care (01) ==
PROVIDERS: PCP Family Medicine; Visit Provider Nurse Practitioner Family
DX: E04.1 Nontoxic single thyroid nodule (principal)
CPT/HCPCS: 36415; 84436; 84443; 92611

== ENCOUNTER 2023-11-14 16:26 | Emergency (ER) | payer OTHER, SELFPAY ==
--- NOTE | ~2023-11-14 | CT_ITS ---
EXAMINATION: CT abdomen pelvis w con DATE: 11/14/2023 17:30 INDICATION: RLQ pain TECHNIQUE: Computed tomography (CT) of the abdomen and pelvis was performed with 100 mL Omnipaque-350 intravenous contrast. Automated exposure control and iterative reconstruction technique were employe d. The dose-length product was 651.74 mGy-cm. COMPARISON: 08/29/2022. FINDINGS: Lower thorax: Unremarkable Liver: Normal. Biliary/Gallbladder: Gallbladder is normal. No bile duct dilation. Pancreas: No mass or duct dilation. Spleen: Normal. Adrenals:No mass. Kidneys: No suspicious mass or obstructing stone. Very mild dilation of the proximal collecting syste m with mild urothelial hyperemia. 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 GI tract: No small or large bowel dilation. Normal appendix. Diverticulosis without diverticulitis. Mesentery/Peritoneum: No ascites, mass, or free air. Retroperitoneum: No mass. Mild atherosclerotic abdominal aortic and/or arterial calcifications. Pelvis: Pelvic organs are within normal limits. IUD, in good position. Stable 2.3 cm left ovarian cys t, requiring no additional evaluation. Soft Tissues: Soft tissues and body wall unremarkable. Bones: No acute osseous finding. IMPRESSION: Mild bilateral proximal ureterectasis and urothelial hyperemia could represent ascending infection in the appropriate clinical context. Otherwise, no acute abdominopelvic process detected. No CT evidence of diverticulitis, appendicitis, or obstructive uropathy. Reviewed, dictated and finalized at location K. ER EXPERIMENTAL IMPRESSION: Mild bilateral proximal ureterectasis and urothelial hyperemia could represent ascending infection in the appropriate clinical context. Otherwise, no acute abdominopelvic process detected. No CT evidence of divertic ulitis, appendicitis, or obstructive uropathy.
--- NOTE | ~2023-11-14 | US_ITS ---
EXAMINATION: US pelvic complete w TV DATE: 11/14/2023 19:04 INDICATION: right adnexal pain TECHNIQUE: Multiple transabdominal and endovaginal sonographic images of the pelvis were obtained. COMPARISON: CT abdomen pelvis, same date. FINDINGS: Uterus: 9.4 x 4.4 x 5.4 cm. IUD, in good position. Endometrial complex measures 5 mm. Right Ovary: 3.1 x 1.8 x 2.3 cm. Vascular flow is present. Left Ovary: 3.9 x 2.3 x 3.4 cm. Vascular flow is present. 2.6 cm simple cyst. There is minimal free fluid in the pelvis. IMPRESSION: Unremarkable pelvic sonogram findings. Reviewed, dictated and finalized at location K. BRITY MANAGER
[2023-11-14 16:29] VITALS: BP 148/89; PULSE 108; RESP 16; TEMP 36.5; O2SAT 98
[2023-11-14] MEDS: SODIUM CHLORIDE 0.9% IV 1,000 ML 999 ML IV CONT (17:09)
[2023-11-14] MEDS: MORPHINE SULFATE (*CRX) 4 MG/ML INJ IV PUSH (17:10)
[2023-11-14] MEDS: ONDANSETRON INJ 4 MG/2 ML VIAL IV PUSH (17:10)
[2023-11-14 17:14] LABS: Basophils Absolute Auto 0.1 K/mm3 (0.0-0.1); Basophils Percent Auto 0.6 % (0.2-1.2); Eosinophils Absolute Auto 0.1 K/mm3 (0-0.3); Hematocrit 38.9 % (37.0-47.0); Hemoglobin 12.8 g/dL (12.0-15.0); Immature Granulocyte Absolute 0.03 K/mm3 (0.00-0.031); Immature Granulocyte Percent A 0.3 % (0-0.5); Lymphocytes Absolute Auto 2.33 K/mm3 (0.9-3.2); Lymphocytes Percent Auto 22.7 % (18.3-44.2); Mean Corpuscular HGB Conc 32.9 g/dl (32-36); Mean Corpuscular Hemoglobin 30.9 pg (26-34); Mean Platelet Volume 11.3 fl (7.4-10.4); Monocytes Absolute Auto 0.8 K/mm3 (0.1-0.6); Monocytes Percent Auto 7.4 % (2.6-8.5); Platelet Count Result 215 k/mm3 (150-375); Red Blood Count 4.14 M/mm3 (4.2-5.4); Red Cell Distribution Width 11.5 % (11.5-14.5); White Blood Count 10.3 K/mm3 (4.5-10.0)
[2023-11-14 17:17] LABS: Appearance Urine Clear (Clear); Bilirubin Urine Negative (Negative); Blood Urine Negative (Negative); Color Urine Yellow (Yellow); Glucose Urine UA Negative (Negative); Ketones Urine Negative (Negative); Leukocyte Esterase Ur Negative LEU/UL (Negative); Nitrate Urine Negative (Negative); Protein Urine Negative (Negative); Specific Grav Ur 1.018 (1.001-1.035); Urobilinogen Urine 0.2 mg/dL (<2.0); pH Urine 5.5 (5.0-9.0)
[2023-11-14 17:21] LABS: Add Urine Microscopic? NO
[2023-11-14 17:25] LABS: Estimated CRCL calculation 110 ml/min; Estimated Glomerular Filt Rate > 60
[2023-11-14 17:29] LABS: Alanine Aminotransferase 24 U/L (6-35); Albumin Level 4.3 g/dL (3.5-5.1); Alkaline Phosphatase 41 U/L (38-126); Anion Gap 7 mmol/L (8-16); Aspartate Amino Transferase 22 U/L (14-36); Bilirubin,Total 0.3 mg/dL (0.2-1.3); Blood Urea Nitrogen 8 mg/dL (7-17); Calcium 8.9 mg/dL (8.4-10.2); Carbon Dioxide 23 mmol/L (22-30); Chloride 105 mmol/L (98-107); Estimated CRCL calculation 110 ml/min; Estimated Glomerular Filt Rate > 60; Glucose 100 mg/dL (65-110); Lipase 88 U/L (23-300); Potassium 3.9 mmol/L (3.4-5.0); Sodium 135 mmol/L (137-145)
--- NOTE | 2023-11-14 18:32 | ED.ABDPAIN ---
HPI - Abdominal Pain General Chief Complaint: Abdominal Pain Stated Complaint: abd pain Time Seen by Provider: 11/14/23 16:34 History of Present Illness HPI narrative: Patient is a 38-year-old female who presents ER with right-sided lower abdominal pain. Sudden onset waking her from sleep this morning. History of kidney stones. Reports she talked to her doctor who told her to come be evaluated to she could also potentially have a ruptured cyst or appendicitis. Pain radiates to her back. Worse with movement. She has tried no pain medication. No alleviating factors. No urinary frequency urgency or dysuria. No blood in her urine. Related Data Home Medications Medication Instructions Recorded Confirmed levonorgestrel 21 mcg/24 hours (8 1 device intrauterine ONCE 10/11/20 11/14/23 yrs) 52 mg intrauterine device (Mirena) polyethylene glycol 3350 17 gram 17 g PO DAILY 09/13/23 11/14/23 oral powder packet (Miralax) cholecalciferol (vitamin D3) 25 25 mcg PO DAILY 10/04/23 11/14/23 mcg (1,000 unit) capsule vitamin E (dl, acetate) 450 mg 450 mg PO DAILY 10/04/23 11/14/23 (1,000 unit) capsule Allergies Allergy/AdvReac Type Severity Reaction Status Date / Time No Known Allergies Allergy Verified 11/14/23 15:28 Review of Systems Review of Systems: All systems reviewed & are unremarkable except as noted in HPI and below Constitutional: Constitutional: Reports no additional constitutional complaints ENT: Reports system reviewed and no additional complaints, except as documented Cardiovascular: Cardiovascular: Reports no additional cardiovascular complaints Respiratory: Respiratory: Reports no additional respiratory complaints Gastrointestinal: Gastrointestinal: Reports abdominal pain, Denies diarrhea, Denies nausea and Denies vomiting Genitourinary: Genitourinary: Denies hematuria, Denies nocturia, Denies dysuria and Reports pelvic pain PMFSH Past Medical History Medical History Abdominal bloating Arthritis BMI 29.0-29.9,adult BMI 30.0-30.9,adult BMI 31.0-31.9,adult Chlamydia Diverticulitis GERD (gastroesophageal reflux disease) Injury of small toe Kidney stones Seasonal allergies Tobacco abuse Vaginal delivery x3 Surgical History Surgical History H/O dilation and curettage x 3 after each vaginal delivery H/O tubal ligation Family History Family History Father Hypertension Lung cancer Mother Hypertension Diabetes mellitus Heart disease Cerebrovascular accident Breast cancer Cancer of kidney Grandparent Hypertension Cerebrovascular accident Family history of malignant neoplasm of breast Family history of coronary artery disease Other Family history of malignant neoplasm of uterus Social History Social History Smoking status: Current every day smoker Tobacco type: cigarettes and e-cigarettes/vaping Second hand tobacco smoke exposure: No Alcohol intake: current Alcohol use details: socially Substance use: never Substance use type: does not use Lack of Transportation: No Lack of Food: Never True Current Housing: I Have Housing Concerned About Future Housing: No Difficulty Paying Gas/Electric Bills: No Difficulty Paying for Meds: No Currently Unemployed: No Education: High School Diploma/GED Difficulty w/ Childcare or Family Care: No Living arrangements: with family Gender identity (if verbalized by the patient): Female Spiritual care concerns: No Exam Narrative: GENERAL: Uncomfortable-appearing, well-nourished, and in no acute distress. HEAD: Normocephalic, atraumatic. ENT: Mucous membranes moist. NECK: Supple. CHEST: Clear to auscultation. No respiratory distress. HEART: Regular rate and rhythm. Normal
[2023-11-14 19:55] VITALS: BP 139/81; PULSE 100; RESP 20; TEMP 37.2; O2SAT 99
== END 2023-11-14 19:55 | disposition home or self-care (01) ==
PROVIDERS: Emergency Provider Emergency Medicine; PCP Family Medicine
DX: R10.31 Right lower quadrant pain (principal); F17.210 Nicotine dependence, cigarettes, uncomplicated; F17.290 Nicotine dependence, other tobacco product, uncomplicated
CPT/HCPCS: 36415; 74177; 76830; 76856; 80053; 81003; 83690; 85025; 96361; 96374; 96375; 99284; J2270; J2405; J7030; Q9967

== ENCOUNTER 2024-01-03 11:03 | Outpatient (CLI) | payer OTHER, SELFPAY ==
--- NOTE | ~2024-01-03 | US_ITS ---
EXAMINATION: US breast RT limited HISTORY: Pain in the upper outer quadrant of the right breast TECHNIQUE: Limited right breast ultrasound was performed. FINDINGS: There is a 1.7 x 1.2 cm oval, hypoechoic mass with lobulated margins, posterior acoustic en hancement, and no internal vascularity at the 10:00 location 3 cm from the nipple. Lesion has previou sly undergone biopsy. No new suspicious cystic or solid mass is identified. IMPRESSION: Right breast mass previously biopsied and demonstrated to be a fibroadenoma. BI-RADS Category 2: Benign finding(s). Reviewed, dictated and finalized at location A. ING UNIT TOOL SETTER
== END 2024-01-03 11:04 | disposition home or self-care (01) ==
LOC: ANHIMG 11:04
PROVIDERS: PCP Family Medicine; Visit Provider Surgery
DX: D24.9 Benign neoplasm of unspecified breast (principal); R92.8 Other abnormal and inconclusive findings on diagnostic imaging of breast
CPT/HCPCS: 76642

== ENCOUNTER 2024-01-30 09:06 | Outpatient (CLI) | payer OTHER, SELFPAY ==
--- NOTE | ~2024-01-30 | MMUS_ITS ---
US_MAGSEEDRT_US, MM post biopsy invasive RT DATE: 01/30/2024 10:13 INDICATION: Painful fibroadenoma; preoperative ultrasound-guided localization/mag seed placement TECHNIQUE: The purpose of the procedure, technique and potential complications were discussed with williams e patient. The patient verbalized understanding and gave consent. The skin the right breast was prepared with sterile solution. Sterile drapes were applied. 1% lidocai ne local anesthetic was a field insurance sales manager the skin and underlying subcutaneous tissues. Mag seed needle was introduced from a lateral approach and directed into the lesion using ultrasound guidance. The mag se ed was deployed through the tip of the needle and the needle withdrawn. Ultrasound confirms mag seed within the lesion as does a post procedure ML and lateral CC mammographi c examination. COMPARISON: January 03, 2024 limited right breast ultrasound IMPRESSION: Successful ultrasound guided mag seed placement at right breast 10:00 lesion 3 cm from ni pple, with ultrasound and mammographic confirmation of mag seed in 10:00 lesion Reviewed, dictated and finalized at Location A. Reviewed, dictated and finalized at location A. IMPRESSION: Successful ultrasound guided mag seed placement at right breast 10: 00 lesion 3 cm from nipple, with ultrasound and mammographic confirmation of ma g seed in 10:00 lesion
== END 2024-01-30 09:07 | disposition home or self-care (01) ==
LOC: ANHIMG 09:08
PROVIDERS: PCP Family Medicine; Visit Provider Surgery
DX: D24.1 Benign neoplasm of right breast (principal)
CPT/HCPCS: 19285; A4648

== ENCOUNTER 2024-01-31 05:50 | Day surgery (SDC) | payer OTHER, SELFPAY ==
[2024-01-14 13:55] VITALS: BMI 30.2
[2024-01-31] VITALS (13 sets, daily range): BP systolic 112–136; BP diastolic 74–99; PULSE 60–82; RESP 12–22; TEMP 36.3–36.9; O2SAT 93–99
--- NOTE | ~2024-01-31 | XR_ITS ---
XR fluoroscopy no charge 01/31/2024 08:53 Indication: Surgical biopsy specimen Procedure: Single specimen provided from surgical right breast biopsy Comparison: Mammogram dated 01/30/2024 Findings: Breast specimen contains magseed marker and tissue marker from the area of interest. Please refer to procedural report for details. Impression: 1: Breast specimen contains magseed and tissue markers associated with right breast mass seen on prio r mammogram. Reviewed, dictated and finalized at location A. Impression: 1: Breast specimen contains magseed and tissue markers associated with right br east mass seen on prior mammogram.
--- NOTE | 2024-01-31 07:12 | WPDHPUPDATE1 ---
History and Physical Update Update Date/Time: 01/31/24 07:12 History and Physical has been reviewed, including an updated exam of the patient. There are NO changes in the patient's condition. Risks, benefits, and alternatives have been discussed and questions answered. Patient agrees to proceed with procedure.
[2024-01-31] MEDS: LACTATED RINGERS 1,000 ML 30 ML IV CONT ×2 (07:24→09:53)
--- NOTE | 2024-01-31 07:28 | WPDANESEPPF ---
Anes - Initial Pre Proc Eval Procedure: Operation Date: 01/31/24 07:30 Proposed Procedures p Excisional Biopsy Right Breast Mass - Elke White MD Date/Time: 01/31/24 07:28 Surgeon: Elke White MD Pre Op Diagnosis: Right Breast Mass Patient Data Age: 38 Gender: F Height: 1.63 m Weight: 80.2 kg Last Vital Signs Temp 36.9 C 01/31/24 06:21 Pulse 68 01/31/24 06:21 Resp 16 01/31/24 06:21 BP 136/94 H 01/31/24 06:21 Pulse Ox 97 01/31/24 06:21 O2 Del Method Room Air 01/31/24 06:21 Allergies Allergy/AdvReac Type Severity Reaction Status Date / Time adhesive tape AdvReac Intermediate Blister Verified 01/31/24 06:05 Home Medications Medication Instructions Recorded Confirmed Type ondansetron 4 mg disintegrating 4 mg PO Q6H PRN nausea and 09/13/22 01/31/24 Rx tablet vomiting #30 tabs dicyclomine 20 mg tablet 20 mg PO TID PRN dicyclomine #90 10/25/22 01/31/24 Rx tabs polyethylene glycol 3350 17 gram 17 g PO DAILY 09/13/23 01/31/24 History oral powder packet (Miralax) cholecalciferol (vitamin D3) 25 25 mcg PO DAILY 10/04/23 01/31/24 History mcg (1,000 unit) capsule vitamin E (dl, acetate) 450 mg 450 mg PO DAILY 10/04/23 01/31/24 History (1,000 unit) capsule evening primrose oil 500 mg capsule 500 mg PO 4-6XD PRN Diarrhea 11/22/23 01/31/24 History omeprazole 40 mg capsule,delayed 40 mg PO DAILY #90 caps 01/23/24 01/31/24 Rx release Patient hx anesthesia problems: none Family hx anesthesia problems: none Results Review: All pre-operative results and documents have been reviewed as part of the pre-operative evaluation. COUNT INCLUDES THE [facility] Past Medical History Medical History Abdominal bloating Arthritis BMI 29.0-29.9,adult BMI 30.0-30.9,adult BMI 31.0-31.9,adult Chlamydia Diverticulitis GERD (gastroesophageal reflux disease) Injury of small toe Kidney stones Seasonal allergies Tobacco abuse Vaginal delivery x3 Surgical History Surgical History H/O dilation and curettage x 3 after each vaginal delivery H/O tubal ligation Family History Family History Father Hypertension Lung cancer Mother Hypertension Diabetes mellitus Heart disease Cerebrovascular accident Breast cancer Cancer of kidney Grandparent Hypertension Cerebrovascular accident Family history of malignant neoplasm of breast Family history of coronary artery disease Other Family history of malignant neoplasm of uterus Social History Social History Smoking packs per day: 1 Smoking cigarettes per day: 20.0 Years smoked: 15 Smoking pack-years: 15.00 Smoking status: Current every day smoker Tobacco type: e-cigarettes/vaping Second hand tobacco smoke exposure: No Smoking end date: 11/19/20 Alcohol intake: never Alcohol use details: socially Substance use: never Substance use type: does not use Lack of Transportation: No Lack of Food: Never True Current Housing: I Have Housing Concerned About Future Housing: No Difficulty Paying Gas/Electric Bills: No Difficulty Paying for Meds: No Currently Unemployed: No Education: High School Diploma/GED Difficulty w/ Childcare or Family Care: No Living arrangements: with family Gender identity (if verbalized by the patient): Female Spiritual care concerns: No Anes - Eval Final PreProcedure Day of Procedure 01/31/24 07:28 Patient weight: obese Heart: regular rate and rhythm Lungs: clear to auscultation Airway: Mallampati scale class III Neurological: alert and oriented Last oral intake: >/= 8 hours ASA classification: II Emergent: no Anesthetic plan: proceed Anesthesia type and monitoring: general LMA and standard monitoring Results Review:
[2024-01-31] MEDS: ceFAZolin SODIUM 2 GM/20 ML SW SYRINGE IV PUSH (07:34)
[2024-01-31] MEDS: BUPIVACAINE/EPINEPHRINE 0.25% 10 ML VIAL 20 ML INFILTRATE (07:53)
--- NOTE | 2024-01-31 09:00 | P.OP_ITS ---
Procedure Note - Detailed Date of Procedure 01/31/24 Pre-op Diagnosis Right Breast biopsy proven fibroadenoma Post-op Diagnosis Same Procedure Performed Excisional biopsy of right breast mass with Mag seed localization Surgeon Elke White MD Supervisor Fabrication none Anesthesia General Description of Procedure Patient was identified in the pre-operative area and brought to the OR suite. She underwent tumor localization previously by IR with magseed placement. She was laid supine in the operating table and sequential compression devices were applied. General anesthesia was induced without difficulties. The right chest was prepped and draped in a sterile fashion. The sentimag probe was used to identify the area where the magseed was placed and a superior periareolar incision was made. Dissection was carried down through the subcutaneous tissue into the breast tissue. The mass was identified with palpation and using sentimag probe, and a rim of normal breast tissue was excised along with the tumor as our lumpectomy specimen. Once the specimen was completely excised, an xray was obtained for radiographic confirmation of mass, biopsy marker and magseed within the specimen. The mass was visualized within the center of the specimen with a biopsy clip and a magseed. The wound was irrigated with saline and hemostasis was assured. The deep dermal layer was approximated using interrupted 3-0 vicryl followed by 4-0 monocryl for the skin. Dermabond was applied followed by a surgical bra. Patient was awoken from anesthesia and taken to the recovery area in stable condition. All needles, instruments and sponge counts were correct as reported by the operating room staff. Patient tolerated the procedure well with no immediate complications. Estimated Blood Loss 5 Drains No Pathology Yes Complications No immediate complications Condition Stable Disposition PACU [facility] Billing Surgery - Charge Forward: Surgery Billing (CPT 64289)
--- NOTE | 2024-01-31 10:06 | SUR.PREOP ---
[address] White if she would like SCD's placed on patient in pre-op. Dr. White states she does not want SCD's placed on patient.
--- NOTE | 2024-01-31 10:22 | WPDANESPN ---
Anes - Prog Note Post-Op Date/Time: 01/31/24 10:22 Cardiovascular status: normal Respiratory status: normal Airway patency: baseline Mental status: baseline Post-Op hydration status: normal Vital Signs: Last Vital Signs Temp 36.3 C L 01/31/24 09:06 Pulse 62 01/31/24 10:14 Resp 13 01/31/24 10:14 BP 113/76 01/31/24 10:14 Pulse Ox 97 01/31/24 10:14 O2 Del Method Room Air 01/31/24 10:14 O2 Flow Rate 6 01/31/24 09:20 Pain Score (VAS): 0 I/O: Intake & Output 01/30/24 01/31/24 01/31/24 23:59 07:59 15:59 Intake Total 1000 Balance 1000 Patient Feedback: Patient satisfied with anesthetic care.
== END 2024-01-31 10:53 | disposition home or self-care (01) ==
PROVIDERS: PCP Family Medicine; Visit Provider Surgery
PROC: (CPT 19125; principal; 2024-01-31 07:30)
DX: D24.1 Benign neoplasm of right breast (principal)
CPT/HCPCS: 19125; 99199

== ENCOUNTER 2024-01-31 10:28 | Outpatient (NON) | payer OTHER, SELFPAY | END 2024-01-31 10:29 | disposition home or self-care (01) | PROVIDERS: PCP Family Medicine; Visit Provider Surgery | DX: R92.8 Other abnormal and inconclusive findings on diagnostic imaging of breast (principal); D24.9 Benign neoplasm of unspecified breast | CPT/HCPCS: 88305 ==

== ENCOUNTER 2024-05-26 11:43 | Outpatient (CLI) | payer OTHER, SELFPAY ==
--- NOTE | ~2024-05-26 | US_ITS ---
EXAMINATION: US thyroid DATE: 05/26/2024 12:02 INDICATION: Multinodular goiter. TECHNIQUE: Multiple ultrasound images of the thyroid were obtained. COMPARISON: Ultrasound 10/10/2023 FINDINGS: The right thyroid lobe measures 4.5 x 1.4 x 1.5 cm. The left thyroid lobe measures 5.0 x 1.3 x 1.4 c m. In the right thyroid lobe, there is a 5 mm solid, hypoechoic, wider than tall nodule with smooth margin without echogenic foci (TI-RADS TR4). In the right thyroid lobe, there is a 6 mm solid, hypoec hoic, wider than tall nodule with smooth margin without echogenic foci (TR4). In the left thyroid lob e, there is a 6 mm solid, hypoechoic, wider than tall nodule with smooth margin without echogenic foc i (TR4). IMPRESSION: 1. Small thyroid nodules, likely not clinically significant. No follow-up is needed. Reviewed, dictated and finalized at location E. IMPRESSION: 1. Small thyroid nodules, likely not clinically significant. No follow-up is ne eded.
== END 2024-05-26 11:44 ==
PROVIDERS: PCP Family Medicine; Visit Provider Internal Medicine
DX: E04.2 Nontoxic multinodular goiter (principal)
CPT/HCPCS: 76536

== ENCOUNTER 2024-05-26 12:09 | Outpatient (CLI) | payer OTHER, SELFPAY ==
--- NOTE | ~2024-05-26 | NM_ITS ---
EXAMINATION: NM thyroid scan w uptake DATE: 05/27/2024 14:34 INDICATION: Goiter with possible toxic thyroid nodule COMPARISON: Ultrasound dated 05/26/2024 TECHNIQUE: 358 microcuries I-123 was administered orally in capsule form. Scintigraphic images of th e thyroid gland were obtained at 24 hours. Thyroid uptake was calculated by the technologist. FINDINGS: The thyroid uptake is 25.8% (normal 10-30%), with the right lobe measuring 12.8% uptake and the left 13.8%. There is no focal area of decreased or increased activity to suggest hypofunctioning or hyperf unctioning nodule. IMPRESSION: 1. Normal thyroid scintigraphy and 24-hour iodine uptake. Reviewed, dictated and finalized at location A.
[2024-05-26 12:39] LABS: Alanine Aminotransferase 25 U/L (6-35); Albumin Level 4.4 g/dL (3.5-5.1); Alkaline Phosphatase 40 U/L (38-126); Anion Gap 8 mmol/L (4-12); Aspartate Amino Transferase 23 U/L (14-36); Bilirubin,Total 0.6 mg/dL (0.2-1.3); Blood Urea Nitrogen 8 mg/dL (7-17); Calcium 9.1 mg/dL (8.4-10.2); Carbon Dioxide 25 mmol/L (22-30); Chloride 104 mmol/L (98-107); Estimated Glomerular Filt Rate > 60; Glucose 98 mg/dL (65-110); Potassium 4.1 mmol/L (3.4-5.0); Sodium 137 mmol/L (137-145)
[2024-05-26 12:51] LABS: Parathyroid Intact 38.1 pg/mL (7.5-53.5)
[2024-05-26 13:11] LABS: Thyroid Stimulating Hormone 0.407 uIU/mL (0.465-4.680)
[2024-05-28 03:43] LABS: LH 6.5 mIU/mL
[2024-05-28 04:39] LABS: DHEA-Sulfate 150 mcg/dL (19-237)
[2024-05-28 07:18] LABS: Thyroid Peroxidase Antibodies <1 IU/mL (<9)
[2024-05-29 20:53] LABS: Testosterone Total 26 ng/dL (2-45)
[2024-05-31 17:49] LABS: Thyroid Stimulating Immunoglob <89 % baseline (<140)
[2024-05-31 20:54] LABS: Estrogen 395 pg/mL
[2024-06-03 16:58] LABS: Thyrotropin Receptor Antibody <1.00 IU/L (< OR = 2.00)
== END 2024-05-26 12:10 | disposition home or self-care (01) ==
LOC: ANHIMG 12:11
PROVIDERS: PCP Family Medicine; Visit Provider Internal Medicine
DX: E04.1 Nontoxic single thyroid nodule (principal); R79.89 Other specified abnormal findings of blood chemistry; E55.9 Vitamin D deficiency, unspecified; N20.0 Calculus of kidney; R63.5 Abnormal weight gain
CPT/HCPCS: 36415; 78014; 80053; 82306; 82627; 82672; 83001; 83002; 83036; 83498; 83519; 83970; 84146; 84402; 84403; 84439; 84443; 84445; 84480; 86376; A9516

== ENCOUNTER 2024-05-29 11:37 | Outpatient (CLI) | payer OTHER, SELFPAY ==
[2024-05-29 13:09] LABS: Creatinine Urine 140.6 mg/dL
[2024-05-29 14:10] LABS: Creatinine 24 Hour Urine 2.3 gm/24 (0.8-1.8); Total Volume 24 Hour Urine 1650 ml
== END 2024-05-29 11:38 | disposition home or self-care (01) ==
LOC: ANHLAB 11:38
PROVIDERS: PCP Family Medicine; Visit Provider Internal Medicine
DX: E04.1 Nontoxic single thyroid nodule (principal); E55.9 Vitamin D deficiency, unspecified; N20.0 Calculus of kidney; R63.5 Abnormal weight gain; R79.89 Other specified abnormal findings of blood chemistry
CPT/HCPCS: 81050; 82340; 82570

== ENCOUNTER 2024-06-10 10:14 | Outpatient (CLI) | payer OTHER, SELFPAY ==
[2024-06-10 10:49] LABS: Hematocrit 37.7 % (37.0-47.0); Mean Corpuscular HGB Conc 34.5 g/dl (32-36); Mean Corpuscular Hemoglobin 31.7 pg (26-34); Mean Platelet Volume 11.4 fl (7.4-10.4); Platelet Count Result 203 k/mm3 (150-375); Red Cell Distribution Width 11.6 % (11.5-14.5); White Blood Count 5.6 K/mm3 (4.5-10.0)
[2024-06-10 11:05] LABS: CRP < 0.5 mg/dL (<1.0)
[2024-06-10 11:37] LABS: Erythrocyte Sedimentation Rate 15 mm/hr (0-20)
== END 2024-06-10 10:15 | disposition home or self-care (01) ==
LOC: ANHLAB 10:15
PROVIDERS: PCP Family Medicine; Visit Provider Nurse Practitioner Family
DX: M25.50 Pain in unspecified joint (principal); R60.9 Edema, unspecified; F32.A Depression, unspecified
CPT/HCPCS: 36415; 85027; 85652; 86038; 86039; 86140

== ENCOUNTER 2024-08-04 13:15 | Emergency (ER) | payer OTHER, SELFPAY ==
[2024-08-04 13:28] VITALS: BP 127/87; PULSE 72; RESP 18; TEMP 36.4; O2SAT 100
--- NOTE | 2024-08-04 13:47 | ED.DENTAL ---
HPI - Dental/Oral General Chief complaint: Dental/Oral Stated complaint: left side tooth pain Time Seen by Provider: 08/04/24 13:35 Source: patient Mode of arrival: ambulatory Limitations: no limitations History of Present Illness HPI Narrative: Earnestine is a 38-year-old female patient presenting to the clinic today with complaints of left-sided tooth pain and swelling x2 days. She reports she has tried to get into her dentist and call for an appointment today however she was unable to. Tilden feverish last night but did not check her temperature. Related Data Home Medications Medication Instructions Recorded Confirmed polyethylene glycol 3350 17 gram 17 g PO PRN PRN Constipation 09/13/23 08/04/24 oral powder packet (Miralax) Allergies Allergy/AdvReac Type Severity Reaction Status Date / Time adhesive tape AdvReac Intermediate Blister Verified 08/04/24 13:36 Review of Systems Review of Systems: Pertinent positives per HPI. Patient denies any rash, headache, visual changes, dizziness, cough, runny nose, sore throat, shortness of breath, chest pain, palpitations, nausea, vomiting, diarrhea, constipation, abdominal pain, or any urinary issues. [facility] Past Medical History Medical History Abdominal bloating Arthritis Chlamydia Difficulty swallowing Diverticulitis Encounter for IUD removal GERD (gastroesophageal reflux disease) Injury of small toe Irregular menses Kidney stones Seasonal allergies Tobacco abuse Vaginal delivery x3 Surgical History Surgical History H/O dilation and curettage x 3 after each vaginal delivery H/O tubal ligation Family History Family History Father Hypertension Lung cancer Mother Hypertension Diabetes mellitus Heart disease Cerebrovascular accident Breast cancer Cancer of kidney Grandparent Hypertension Cerebrovascular accident Family history of malignant neoplasm of breast Family history of coronary artery disease Other Family history of malignant neoplasm of uterus Social History Social History Smoking packs per day: 1 Smoking cigarettes per day: 20.0 Years smoked: 15 Smoking pack-years: 15.00 Smoking status: Former smoker Tobacco type: e-cigarettes/vaping Second hand tobacco smoke exposure: No Smoking end date: 11/19/20 Alcohol intake: never Alcohol use details: socially Substance use: never Substance use type: does not use Lack of Transportation: No Lack of Food: Never True Current Housing: I Have Housing Concerned About Future Housing: No Difficulty Paying Gas/Electric Bills: No Difficulty Paying for Meds: No Currently Unemployed: No Education: High School Diploma/GED Difficulty w/ Childcare or Family Care: No Living arrangements: with family Gender identity (if verbalized by the patient): Female Spiritual care concerns: No Comments At the time of my signature, I reviewed and agree with the nursing past medical, surgical, social, and family history. There is no relevant family history pertinent to the patient complaint. Exam Narrative: General: Well-developed, well nourished, in no apparent distress Head: Normocephalic, atraumatic Eyes: Pupils equally round and reactive to light bilaterally, EOM intact, sclera and conjunctive clear, no discharge, lids normal Ears: TMs intact and clear, ear canals clear, no drainage, grossly hearing normal. Nose: Nares patent, no discharge, no inflammation, no sinus tenderness. Mouth: Oropharynx without lesions or masses, poor dentition, MMM. Even rise and fall of uvula, trismus, swelling over the left lower gingiva/ jaw, tenderness to palpation, no erythema, no discharge Neck: Supple, trachea midline, no enlargement of
[2024-08-04] MEDS: cefTRIAXone 1 GM, LIDOCAINE HCL 1% LOCAL INJ 2.1 ML IM (14:02)
== END 2024-08-04 14:17 | disposition home or self-care (01) ==
PROVIDERS: Emergency Provider Nurse Practitioner Family; PCP Family Medicine
DX: K04.7 Periapical abscess without sinus (principal); M19.90 Unspecified osteoarthritis, unspecified site; K21.9 Gastro-esophageal reflux disease without esophagitis
CPT/HCPCS: 96372; 99213; G0463; J0696

== ENCOUNTER 2024-08-05 11:04 | Emergency (ER) | payer OTHER, SELFPAY ==
[2024-08-05 11:06] VITALS: BP 140/103; PULSE 88; RESP 18; TEMP 36.5; O2SAT 98
[2024-08-05 12:13] VITALS: BP 153/103; PULSE 74; RESP 15; O2SAT 99
--- NOTE | 2024-08-05 12:23 | ED.GENADULT ---
HPI - General Adult General Chief complaint: Skin/Abscess/Foreign Body Stated complaint: throat abscess Time Seen by Provider: 08/05/24 11:51 History of Present Illness HPI narrative: 38-year-old female presents to the emergency department for evaluation for left-sided facial pain. Patient has had longstanding dental issues. Patient did follow-up with urgent care yesterday was started on clindamycin. Patient took a single dose of clindamycin yesterday in a single dose today but is concerned because she still having worsening facial swelling. Patient reports decreased p.o. intake. Patient has been taking Tylenol ibuprofen for pain control. Related Data Home Medications Medication Instructions Recorded Confirmed polyethylene glycol 3350 17 gram 17 g PO PRN PRN Constipation 09/13/23 08/04/24 oral powder packet (Miralax) Allergies Allergy/AdvReac Type Severity Reaction Status Date / Time adhesive tape AdvReac Intermediate Blister Verified 08/05/24 12:13 Review of Systems Review of Systems: All systems reviewed & are unremarkable except as noted in HPI and below PMFSH Past Medical History Medical History Abdominal bloating Arthritis Chlamydia Difficulty swallowing Diverticulitis Encounter for IUD removal GERD (gastroesophageal reflux disease) Injury of small toe Irregular menses Kidney stones Seasonal allergies Tobacco abuse Vaginal delivery x3 Surgical History Surgical History H/O dilation and curettage x 3 after each vaginal delivery H/O tubal ligation Family History Family History Father Hypertension Lung cancer Mother Hypertension Diabetes mellitus Heart disease Cerebrovascular accident Breast cancer Cancer of kidney Grandparent Hypertension Cerebrovascular accident Family history of malignant neoplasm of breast Family history of coronary artery disease Other Family history of malignant neoplasm of uterus Social History Social History Smoking packs per day: 1 Smoking cigarettes per day: 20.0 Years smoked: 15 Smoking pack-years: 15.00 Smoking status: Former smoker Tobacco type: e-cigarettes/vaping Second hand tobacco smoke exposure: No Smoking end date: 11/19/20 Alcohol intake: never Alcohol use details: socially Substance use: never Substance use type: does not use Lack of Transportation: No Lack of Food: Never True Current Housing: I Have Housing Concerned About Future Housing: No Difficulty Paying Gas/Electric Bills: No Difficulty Paying for Meds: No Currently Unemployed: No Education: High School Diploma/GED Difficulty w/ Childcare or Family Care: No Living arrangements: with family Gender identity (if verbalized by the patient): Female Spiritual care concerns: No Exam Narrative: APPEARANCE: Left-sided facial swelling. HEAD: normocephalic, atraumatic. EYES: PERRLA/EOMI, conjunctivae clear. NOSE: Normal no drainage EARS:TMS clear with good light reflex. THROAT: Pharynx clear, no exudate. NECK: Supple. No adenopathy, no masses. RESPIRATORY: Airway patent, respirations nonlabored. Clear to auscultation bilaterally, no rales, rhonchi, wheezing. CARDIOVASCULAR: Regular rate and rhythm without murmurs rubs or gallops. ABDOMINAL: Soft, nontender, nondistended, normal bowel sounds MUSCULOSKELETAL: Moves all extremities. Strength/ROM intact, No edema, No calf tenderness. NEURO: Alert. Cranial nerves II through XII intact. Grossly intact SKIN: Warm, dry. Normal Color Course Course Emergency Course: Patient was discharged home to continue her antibiotic. Patient was provided additional medications for pain control Vital Signs Vital signs: Vital Signs Temperature 97.7 F
[2024-08-05] MEDS: SODIUM CHLORIDE 0.9% IV 1,000 ML 999 ML IV CONT (13:18)
[2024-08-05] MEDS: HYDROmorphone HCL INJ (*CRX) 1 MG/ML SYR 0.5 MG IV PUSH (13:20)
[2024-08-05] MEDS: CLINDAMYCIN 600 MG/D5W 50 ML 600 MG/50 ML PIGGYBACK 100 MG IVPB (13:24)
[2024-08-05 13:53] VITALS: BP 167/105; PULSE 58; RESP 15; O2SAT 99
[2024-08-05 14:35] VITALS: BP 188/64; PULSE 70; RESP 16; O2SAT 100
== END 2024-08-05 14:36 | disposition home or self-care (01) ==
PROVIDERS: Emergency Provider Emergency Medicine; PCP Family Medicine
DX: K04.7 Periapical abscess without sinus (principal); R22.0 Localized swelling, mass and lump, head; M19.90 Unspecified osteoarthritis, unspecified site; K21.9 Gastro-esophageal reflux disease without esophagitis; Z87.442 Personal history of urinary calculi; Z87.891 Personal history of nicotine dependence
CPT/HCPCS: 96361; 96365; 96375; 99284; J1170; J7030

== ENCOUNTER 2024-10-13 09:22 | Outpatient (CLI) | payer OTHER, SELFPAY ==
--- NOTE | ~2024-10-13 | MMUS_ITS ---
EXAMINATION: MM diagnostic jose rafael BI w paulino, US breast RT complete HISTORY: Right breast pain TECHNIQUE: Additional 3-D tomosynthesis images of the right breast were performed and synthetic 2-D i mages were generated. CAD analysis was submitted and interpreted. High resolution complete right anthony st ultrasound was performed. COMPARISON: Comparison to multiple prior studies sequentially, with oldest reviewed study dated 07/2017. BREAST PARENCHYMAL COMPOSITION: Not dense: There are scattered areas of fibroglandular density. FINDINGS: MAMMOGRAPHIC FINDINGS: There is developing asymmetry in the upper outer quadrant of the right breast with possible ssis architect ural distortion. No discrete mass. No suspicious calcifications. ULTRASOUND: Complete US of all 4 quadrants of the right breast/s and retroareolar region was reviewed. At 11:00, 5 cm from the nipple there is an irregular shaped hypoechoic mass measuring 2.8 x 2.8 x 1.0 cm with a ltered morphology compared with prior ultrasound when there is a mass described at 10:00, 3 cm from t he nipple. IMPRESSION: 1. Right breast mass at 11:00, 5 cm from the nipple measuring 2.8 cm. 2. Ultrasound-guided right breast biopsy recommended. BI-RADS category 4, suspicious findings. Reviewed, dictated and finalized at location B. SPOOLER IMPRESSION: 1. Right breast mass at 11:00, 5 cm from the nipple measuring 2.8 cm. 2. Ultrasound-guided right breast biopsy recommended. BI-RADS category 4, suspicious findings.
== END 2024-10-13 09:23 | disposition home or self-care (01) ==
PROVIDERS: PCP Family Medicine; Visit Provider Surgery
DX: R92.8 Other abnormal and inconclusive findings on diagnostic imaging of breast (principal); N63.11 Unspecified lump in the right breast, upper outer quadrant
CPT/HCPCS: 76641; 77062; 77066; G0279

== ENCOUNTER 2024-10-15 10:57 | Outpatient (CLI) | payer OTHER, SELFPAY ==
[2024-10-15 12:14] LABS: Thyroid Stimulating Hormone 0.388 uIU/mL (0.465-4.680)
[2024-10-15 12:30] LABS: Free T4 Free Thyroxine 0.95 ng/mL (0.78-2.19)
[2024-10-20 19:18] LABS: Thyroid Peroxidase Antibodies <1 IU/mL (<9)
== END 2024-10-15 10:58 | disposition home or self-care (01) ==
PROVIDERS: PCP Family Medicine; Visit Provider Nurse Practitioner Family
DX: E05.90 Thyrotoxicosis, unspecified without thyrotoxic crisis or storm (principal); R79.89 Other specified abnormal findings of blood chemistry
CPT/HCPCS: 36415; 84439; 84443; 86376

== ENCOUNTER 2025-01-06 13:50 | Outpatient (CLI) | payer OTHER, SELFPAY ==
--- OUTSIDE RECORDS SUMMARY | 2025-01-06 13:57 | XMS_ITS | Patient Health Summary ---
Author Organization [facility] [place] Address [address] [place] [address] Care Team Providers Care Director Physical Therapy Name Role Phone Unavailable Primary Care Provider Unavailabl e Note from [facility],non-owned Affiliates and Associated Physician Practices is amultiple site organization consisting of ambulatory clinics and hospital sitesin [place], [place], [place] and [place]. This disclosure is being madepursuant to the Care Everywhere program and may not contain all information available regarding this patient. Last updated 18.[facility] [place] Allergies No known active allergies Medications Be aware that medications may not be up to date on this document. Always verify current medications with the patient. No known medications Social History Tobacco Use Types Packs/Day Years Used Date Smoking Tobacco: Light Smoker Smokeless Tobacco: Never Sex and Gender Information Value Date Recorded Sex Assigned at Not on file Gender Identity Not on file Sexual Orientation Not on file Last Filed Vital Signs Vital Sign Reading Time Taken Comments Blood Pressure 108/64 12/07/2017 6:31 PM EXPENSE ANALYST Pulse 77 12/07/2017 6:31 PM EXPENSE ANALYST Temperature 36.7 C (98 F) 12/07/2017 6:31 PM EXPENSE ANALYST Respiratory Rate 16 12/07/2017 6:31 PM EXPENSE ANALYST Oxygen Saturation 98% 12/07/2017 6:31 PM EXPENSE ANALYST Inhaled Oxygen Concentration - - Weight 72.6 kg (160 lb) 12/07/2017 6:31 PM EXPENSE ANALYST Height 162.6 cm (5' 4 ) 12/07/2017 6:31 PM EXPENSE ANALYST Body Mass Index 27.46 12/07/2017 6:31 PM EXPENSE ANALYST Procedures * DERMATOPATHOLOGY(Performed 12/11/2022) * SKIN TEST PPD - POINT OF CARE(Performed 06/28/2017) Performed for PPD screening test Results * DERMATOPATHOLOGY (12/11/2022 12:00 AM EXPENSE ANALYST) Case Report Dermatopathology Report Case: [id number] Authorizing Provider: Lindsey Paz DO Collected: 12/11/2022 12:00 AM Ordering Location: [facility] DermPath Lab Received: 12/12/2022 01:14 PM Pathologist: Lara Nuno MD Specimen: Skin, right back 12:43 PM [facility] DERMATOPATHOLOGY LABORATORY Final Diagnosis Specimen A. SKIN, right back: LENTIGINOUS MELANOCYTIC NEVUS, COMPOUND TYPE, IRRITATED (D22.5) 12:43 PM [facility] DERMATOPATHOLOGY LABORATORY Clinical History R/O Atypia 12:43 PM [facility] DERMATOPATHOLOGY LABORAT[facility] Gross Description Specimen A: Received is one formalin filled container labeled with the patient's name and designated right back. The specimen consists of a shave biopsy measuring 7x5x1 mm. Jar 0. 12:43 PM [facility] DERMATOPATHOLOGY [facility]ORATORY Microscopic Description Specimen A. SKIN, right back: This is a compound nevus. There is melanin pigment in the stratum corneum. There is a lentiginous proliferation of melanocytes between nevus nests of cells along the dermal epidermal junction. There is underlying fibroplasia of the papillary dermis. The intradermal component is bland in appearance and matures with depth. (Compound Geoffrey's Nevus) 12:43 PM [facility] DERMATOPATHOLOGY LABORATORY Disclaimer An external and internal positive and negative controls are appropriate for the histochemical, immunohistochemical and immunofluorescence stain(s) in this case (if any), except where stated explicitly. The performance characteristics of the stain(s) cited in this report were developed and its performance characteristic determined by the Dermatopathology Laboratory at [facility], directed by Dr. King Jimenez. These tests need not be, and therefore are not, approved by the [place] Food and Drug Administration. The tests are used for clinical purposes. Billing Codes Specimen Charges Stain Charges 10184 1 3 12:43 PM EXPENSE ANALYST DERMATOPATHOLOGY LABORATORY Embedded Images 3 12:43 PM EXPENSE ANALYST DERMATOPATHOLOGY LABORATORY Pathology/Cytolog y TISSUE SPECIMEN FROM SKIN / Unknown 12/11/2022 12/12/2022 1:14 PM EXPENSE ANALYST Lindsey Paz DO LAB - PATHOLOGY/C YTOLOGY ORDERABLES DERMATOPATHOLOGY LABORATORY [facility] - Department of Dermatology [facility] Medicine [address] [place] [address], [address] [phone] * SKIN TEST PPD - POINT OF CARE (06/28/2017) PPD 0mm Comment:No induration, form signed, scanned into record, and returned to patient MISCELLANEOUS SAMPLE S / Unknown 06/28/2017 Teagan Lindquist CHILD [facility]ARE CENTER ASSISTANT DIRECTOR-LAY OUT AND DETAIL DRAFTER LAB - POINT OF [place] RE ORDERABLES
--- OUTSIDE RECORDS SUMMARY | 2025-01-06 13:57 | XMS_ITS | Referral Summary ---
Author Organization [facility] Address [address] [place] [address] Care Team Providers Care Lab Head Name Role Phone Unavailable Primary Care Provider Unavailabl e Source Comments [facility],non-owned Affiliates and Associated Physician Practices is amultiple site organization consisting of ambulatory clinics and hospital sitesin [place], [place], [place] and [place]. This disclosure is being madepursuant to the Care Everywhere program and may not contain all information available regarding this patient. Last updated 18.[facility] Allergies No known active allergies Medications Be [...] Comments Blood Pressure 108/64 12/07/2017 6:31 PM HEADWAITRESS Pulse 77 12/07/2017 6:31 PM HEADWAITRESS Temperature 36.7 C (98 F) 12/07/2017 6:31 PM HEADWAITRESS Respiratory Rate 16 12/07/2017 6:31 PM HEADWAITRESS Oxygen Saturation 98% 12/07/2017 6:31 PM HEADWAITRESS Inhaled Oxygen Concentration - - Weight 72.6 kg (160 lb) 12/07/2017 6:31 PM HEADWAITRESS Height 162.6 cm (5' 4 ) 12/07/2017 6:31 PM HEADWAITRESS Body Mass Index 27.46 12/07/2017 6:31 PM HEADWAITRESS Plan of Treatment Not on file Administered Medications Guarantor Name Account Type Relation to Patient Date of Phone Billing Address López Aguilar Personal/Family Self [address] [place] [phone] López Aguilar Personal/Family Self [address] [place] [id number] LÓPEZ AGUILAR Personal/Family Spouse [address] [place] [address] LÓPEZ AGUILAR Personal/Family Spouse [address] [place] [address] LÓPEZ AGUILAR Personal/Family Spouse [address] [place] [address] LÓPEZ AGUILAR Personal/Family Spouse [address] [place] [address]
--- OUTSIDE RECORDS SUMMARY | 2025-01-06 13:57 | XMS_ITS | Clinical Summary ---
Author Organization [facility] Address [address] [place] [address] Care Team Providers Care Frame And Scrap Crusher Name Role Phone Unavailable Primary Care Provider Unavailabl e Source Comments [facility],non-owned Affiliates and Associated Physician Practices is amultiple site organization consisting of ambulatory clinics and hospital sitesin [place], [place], [place] and [place]. This disclosure is being madepursuant to the Care Everywhere program and may not contain all information available regarding this patient. Last updated 18.[facility] Allergies No known active allergies Medications Be [...] Comments Blood Pressure 108/64 12/07/2017 6:31 PM TECHNICIAN TERMINAL AND REPEATER Pulse 77 12/07/2017 6:31 PM TECHNICIAN TERMINAL AND REPEATER Temperature 36.7 C (98 F) 12/07/2017 6:31 PM TECHNICIAN TERMINAL AND REPEATER Respiratory Rate 16 12/07/2017 6:31 PM TECHNICIAN TERMINAL AND REPEATER Oxygen Saturation 98% 12/07/2017 6:31 PM TECHNICIAN TERMINAL AND REPEATER Inhaled Oxygen Concentration - - Weight 72.6 kg (160 lb) 12/07/2017 6:31 PM TECHNICIAN TERMINAL AND REPEATER Height 162.6 cm (5' 4 ) 12/07/2017 6:31 PM TECHNICIAN TERMINAL AND REPEATER Body Mass Index 27.46 12/07/2017 6:31 PM TECHNICIAN TERMINAL AND REPEATER Plan of Treatment Health Maintenance Due Date Last Done Comments LIPID TESTING 1985 MAMMOGRAM 1985 PAP SMEAR 1985 HIV SCREENING 1999 HEPATITIS C SCREENING 11/01/2002 DTAP/TDAP/TD VACCINES (1 - Tdap) 2003 HEPATITIS B VACCINE (1 of 3 - 19+ 3-dose series) 2003 PNEUMOCOCCAL VACCINE (1 of 2 - PCV) 2003 COVID-19 VACCINE (1 - 2023-2 5 season) 2024 INFLUENZA VACCINE (#1) 2024 DEPRESSION SCREENING 11/19/2024 ZOSTER VACCINE (1 of 2) 2034 HIB VACCINE Aged Out No longer eligi ble based on patient's age to complete this topic HPV VACCINE Aged Out No longer eligi ble based on patient's age to complete this topic MENINGOCOCCAL (Group B) VACCINE Aged Out No longer eligible based on patient's age to complete this topic MENINGOCOCCAL VACCINE Aged Out No nadine marga eligible based on patient's age to complete this topic Guarantor Name Account Type Relation to Patient Date of Phone Billing Address López Aguilar Personal/Family Self [address] [place] [phone] LaurenMayela hernandezsha Personal/Family Self [address] [place] [id number] LÓPEZ AGUILAR Personal/Family Spouse [address] [place] [phone] LÓPEZ AGUILAR Personal/Family Spouse [address] [place] [phone] LÓPEZ AGUILAR Personal/Family Spouse [address] [place] [phone] LÓPEZ AGUILAR Personal/Family Spouse [address] [place] [phone]
--- OUTSIDE RECORDS SUMMARY | 2025-01-06 13:57 | XMS_ITS | Clinical Summary ---
Author Organization [facility] Address [address] [place] [address] Care Team Providers Care Tuber Machine Operator Helper Name Role Phone Oswaldo Arthur MD Primary Care Provider [phone] Allergies No known active allergies Medications omeprazole (PriLOSEC) 40 mg capsule Take 40 mg by mouth daily Active Active Problems No known active problems Surgical History Surgery Date Site/Laterality Comments TUBAL LIGATION DILATION AND CURETTAGE OF UTERUS Medical History Medical History Date Comments Depression Anxiety Family History Medical History Relation Name Comments Leukemia Father Lung cancer Father Breast cancer Maternal Grandfather Breast cancer Mother Ovarian cancer Mother's Sister Uterine cancer Mother's Sister Relation Name Status Comments Father Maternal Grandfather Mother Mother's Sister Social History Tobacco Use Types Packs/Day Years Used Date Smoking Tobacco: Every Day Cigarettes Vaping Smokeless Tobacco: Current Personal Safety Answer Date Recorded Getting School Help Needed Not on file 01/19 Comments Unknown Sex and Gender Information Value Date Recorded Sex Assigned at Not on file Legal Sex Female 3:15 PM CDT Gender Identity Not on file Sexual Orientation Not on file Obstetrics History Last Filed Vital Signs Vital Sign Reading Time Taken Comments Blood Pressure 131/88 03/08/2021 1:50 PM CDT Pulse 78 03/08/2021 1:50 PM CDT Temperature 36.9 C (98.4 F) 03/08/2021 1:50 PM CDT Respiratory Rate 18 03/08/2021 1:50 PM CDT Oxygen Saturation 99% 03/08/2021 1:50 PM CDT Inhaled Oxygen Concentration - - Weight 78.7 kg (173 lb 6.4 oz) 03/08/2021 1:50 P M CDT Height 162.6 cm (5' 4 ) 03/08/2021 1:50 PM CDT Body Mass Index 29.76 03/08/2021 1:50 PM CDT Plan of Treatment Not on file Insurance HEALTHCARE PPO [facility] Care Teams Tuber Machine Operator Helper Relationship Specialty Start Date End Date Schueler, Oswaldo F., MD PCP - General Family Medicine 02/16/21
--- OUTSIDE RECORDS SUMMARY | 2025-01-06 13:57 | XMS_ITS | Referral Summary ---
Author Organization [facility] Address [address] [place] [address] Care Team Providers Care Agricultural Extension Educator Name Role Phone Oswaldo Arthur MD Primary Care Provider Allergies No known active allergies Medications omeprazole (PriLOSEC) 40 mg capsule Take 40 mg by mouth daily Active Active Problems No known active problems Social History Tobacco Use Types Packs/Day Years [...] Treatment Not on file Insurance HEALTHCARE PPO HEALTHCARE PPO Care Teams Agricultural Extension Educator Relationship Specialty Start Date End Date Oswaldo Arthur MD PCP - General Family Medicine 02/16/21
[2025-01-06 15:01] LABS: Free T4 Free Thyroxine 0.93 ng/dL (0.78-2.19)
[2025-01-06 15:36] LABS: Thyroid Stimulating Hormone 0.566 uIU/mL (0.465-4.680)
[2025-01-06 15:37] LABS: Total Triiodothyronine (T3) 1.35 NG/ML (0.97-1.69)
== END 2025-01-06 13:51 | disposition home or self-care (01) ==
LOC: ANHLAB 13:52
PROVIDERS: PCP Internal Medicine Endocrinology, Diabetes & Metabolism; Visit Provider Internal Medicine Endocrinology, Diabetes & Metabolism
DX: E05.90 Thyrotoxicosis, unspecified without thyrotoxic crisis or storm (principal)
CPT/HCPCS: 36415; 84439; 84443; 84480

== ENCOUNTER 2025-04-10 12:43 | Outpatient (CLI) | payer OTHER, SELFPAY ==
--- NOTE | ~2025-04-10 | MMUS_ITS ---
EXAMINATION: MM diagnostic jose rafael RT w paulino, US breast RT limited HISTORY: Follow-up right breast asymmetry. TECHNIQUE: Additional 3-D tomosynthesis images of the right breast were performed and synthetic 2-D i mages were generated. CAD analysis was submitted and interpreted. High resolution Limited right breas t ultrasound was performed. COMPARISON: Comparison to multiple prior studies sequentially, with oldest reviewed study dated 07/2017. BREAST PARENCHYMAL COMPOSITION: Not dense: There are scattered areas of fibroglandular density. FINDINGS: MAMMOGRAPHIC FINDINGS: There is architectural distortion in the upper outer quadrant of the right breast. There are punctate indeterminate calcifications in this region. No discrete mass identified. ULTRASOUND: Limited right breast ultrasound: There is a large irregular shaped hypoechoic mass at 11:00, 5 cm fro m the nipple with ill-defined margins, marginal vascularity and mixed posterior attenuation. This mas s measures approximately 3.8 x 2.7 cm altered morphology compared with prior ultrasound dated 024. At 11:00, 5 cm from the nipple there is a 6 mm cyst. At 12:00, 1 cm from the nipple there is a 6 mm cyst. IMPRESSION: 1. Complex irregular shaped hypoechoic 3.8 cm mass in the 11:00, 5 cm from the nipple with marginal v ascularity and mixed posterior attenuation. This corresponds to the area of mammographic concern. 2. Ultrasound-guided biopsy recommended. BI-RADS category 4, suspicious findings. Reviewed, dictated and finalized at location B. IMPRESSION: 1. Complex irregular shaped hypoechoic 3.8 cm mass in the 11:00, 5 cm from the nipple with marginal vascularity and mixed posterior attenuation. This correspo nds to the area of mammographic concern. 2. Ultrasound-guided biopsy recommended. BI-RADS category 4, suspicious findings.
--- OUTSIDE RECORDS SUMMARY | 2025-04-10 12:48 | XMS_ITS | Referral Summary ---
Author Organization [facility] Address [address] [place] [address] Care Team Providers Care Pediatric Acute Care Unit Nurse Name Role Phone Oswaldo Arthur MD Primary Care Provider [phone] Allergies No known active allergies Medications omeprazole [...] Insurance HEALTHCARE PPO HEALTHCARE PPO Care Teams Pediatric Acute Care Unit Nurse Relationship Specialty Start Date End Date Oswaldo Arthur MD PCP - General Family Medicine 02/16/21
--- OUTSIDE RECORDS SUMMARY | 2025-04-10 12:48 | XMS_ITS | Clinical Summary ---
Author Organization [facility] Address [address] [place] [address] Care Team Providers Care Help Desk Associate Name Role Phone Unavailable Primary Care Provider Unavailabl e Source Comments [facility],non-owned Affiliates and Associated Physician Practices is amultiple site organization consisting of ambulatory clinics and hospital sitesin [place], [place], [place] and [place]. This disclosure is being madepursuant to the Care Everywhere program and may not contain all information available regarding this patient. Last updated 18.[facility] Allergies No known active allergies Medications * Be aware that medications may not be up to date on this document. Alwaysverify current medications with the patient. No known medications Social History Tobacco Use Types Packs/Day Years Used Date Smoking Tobacco: Light Smoker Smokeless Tobacco: Never Comments Unknown Sex and Gender Information Value Date Recorded Sex Assigned at Not on file Legal Sex Female 2:59 PM CDT Gender Identity Not on file Sexual Orientation Not on file Last Filed Vital Signs Vital Sign Reading Time Taken Comments Blood Pressure 108/64 12/07/2017 6:31 PM MENHADEN VESSEL PILOT Pulse 77 12/07/2017 6:31 PM MENHADEN VESSEL PILOT Temperature 36.7 C (98 F) 12/07/2017 6:31 PM MENHADEN VESSEL PILOT Respiratory Rate 16 12/07/2017 6:31 PM MENHADEN VESSEL PILOT Oxygen Saturation 98% 12/07/2017 6:31 PM MENHADEN VESSEL PILOT Inhaled Oxygen Concentration - - Weight 72.6 kg (160 lb) 12/07/2017 6:31 PM MENHADEN VESSEL PILOT Height 162.6 cm (5' 4 ) 12/07/2017 6:31 PM MENHADEN VESSEL PILOT Body Mass Index 27.46 12/07/2017 6:31 PM MENHADEN VESSEL PILOT Plan of Treatment Health Maintenance Due Date Last Done Comments LIPID TESTING 1984 MAMMOGRAM 1984 PAP SMEAR 1984 HIV SCREENING 1999 HEPATITIS C SCREENING 11/01/2002 DTAP/TDAP/TD VACCINES (1 - Tdap) 2003 HEPATITIS B VACCINE (1 of 3 - 19+ 3-dose series) 2003 PNEUMOCOCCAL VACCINE (1 of 2 - PCV) 2003 COVID-19 VACCINE (1 - 2023-2 5 season) 2024 DEPRESSION SCREENING 11/19/2024 INFLUENZA VACCINE (Season Ended) 2025 ZOSTER VACCINE (1 of 2) 2034 HIB VACCINE Aged Out No longer eligi ble based on patient's age to complete this topic HPV VACCINE Aged Out No longer eligi ble based on patient's age to complete this topic MENINGOCOCCAL (Group B) VACC INE SHARED DECISION-MAKING Aged Out No longer eligibl e based on patient's age to complete this topic MENINGOCOCCAL GROUPS A/C/Y/W VACCINE Aged Out No longer eligible b ased on patient's age to complete this topic Insurance [facility] [employer] SELF PAY NO INSURANCE Member Subscriber Plan / Payer (Ef fective for All Dates) Name:López Aguilar Member ID:Not on file Relation to Subscriber:Not on file Name:LÓPEZ AGUILAR Subscriber ID:Not on file Address: [address] [place] [address] Payer ID:Not on file Group ID:Not on file Type:Self Pay Address: [place], [place] [employer] SELF PAY NO INSURANCE Member Subscriber Plan / Payer (Ef fective for All Dates) Name:López Aguilar Member ID:Not on file Relation to Subscriber:Not on file Name:ANTONIOLÓPEZ Subscriber ID:Not on file Address: [address] [place] [address] Payer ID:Not on file Group ID:Not on file Type:Self Pay Address: [place], [place] HEALTH CARE SELF PAY NO INSURANCE Member Subscriber Plan / Payer (Ef fective for All Dates) Name:López Aguilar Member ID:Not on file Relation to Subscriber:Not on file Name:ANTONIO,LÓPEZ Subscriber ID:Not on file Address: [address] [place] [address] Payer ID:Not on file Group ID:Not on file Type:Self Pay Address: [place], [place] [employer] SELF PAY NO INSURANCE Member Subscriber Plan / Payer (Ef fective for All Dates) Name:López Aguilar Member ID:Not on file Relation to Subscriber:Not on file Name:LÓPEZ AGUILAR Subscriber ID:Not on file Address: [address] [place] [id number] Payer ID:Not on file Group ID:Not on file Type:Self Pay Address: [place], [place]
--- OUTSIDE RECORDS SUMMARY | 2025-04-10 12:48 | XMS_ITS | Clinical Summary ---
Author Organization [facility] Address [address] [place] [address] Care Team Providers Care Stenographer Secretary Name Role Phone Oswaldo Arthur MD Primary Care Provider [phone] Allergies No known active allergies Medications omeprazole [...] Treatment Not on file Insurance [facility] Care Teams Stenographer Secretary Relationship Specialty Start Date End Date Schueler, Oswaldo F., MD PCP - General Family Medicine 02/16/21
== END 2025-04-10 12:44 | disposition home or self-care (01) ==
LOC: ANHIMG 12:44
PROVIDERS: PCP Family Medicine; Visit Provider Surgery
DX: N63.10 Unspecified lump in the right breast, unspecified quadrant (principal); R92.8 Other abnormal and inconclusive findings on diagnostic imaging of breast; N64.4 Mastodynia
CPT/HCPCS: 76642; 77061; 77065; G0279

== ENCOUNTER 2025-04-22 08:19 | Outpatient (CLI) | payer OTHER, SELFPAY ==
--- NOTE | ~2025-04-22 | MM_ITS ---
PROCEDURE: MM post biopsy diagnostic RT CLINICAL HISTORY: 39-year-old female with right breast complex irregular shaped hypoechoic mass at 11 :00, 5 cm from the nipple presents for ultrasound-guided core needle biopsy procedure. COMPARISON: 04/10/2025 Following informed consent including risks, benefits, and possible complications, the patient was bro ught to the ultrasound suite. A time-out procedure was performed. A preliminary ultrasound of the [facility] breast was performed, redemonstrating complex irregular shaped hypoechoic mass at 11:00, 5 cm fro m the nipple. The patient was prepped and draped in the usual sterile fashion. 1% lidocaine was instilled into the subcutaneous tissues. 1% lidocaine with epinephrine was injected into the deep tissues just inferior to the lesion. Approximately 15cc lidocaine was administered. A small skin pranay was made. Multiple co re samples were obtained with a 14-gauge multi pass biopsy needle. A post biopsy metal marker was darling jarvis at the biopsy site. Postprocedural mammogram of the right breast in craniocaudal and mediolateral projections reveal the post biopsy metal marker in good position. The patient tolerated the procedure well and was without i mmediate postprocedural complications. IMPRESSION: Successful ultrasound guided biopsy of right breast mass. A post biopsy metal marker was placed at the biopsy site, which is seen on postprocedural mammogram. The patient tolerated the procedure well without immediate postprocedure complications. The patient w as given postprocedural instructions and sent home in stable condition. Reviewed, dictated and finalized at location B. IMPRESSION: Successful ultrasound guided biopsy of right breast mass. A post bi opsy metal marker was placed at the biopsy site, which is seen on postprocedura l mammogram. The patient tolerated the procedure well without immediate postprocedure compli cations. The patient was given postprocedural instructions and sent home in sta ble condition.
--- NOTE | 2025-04-22 09:31 | S_PTH ---
PATIENT: Odette Aguilar LOC: [facility] U#:[id number] AGE/SX: 39/F ROOM: RE04/22/[address]: Elke White MD : 1985 BED: DIS: 04/22/2025 SPEC #: [id number] RECD: 04/22/25 10:23 STATUS: ARLENE REHuey #: [id number] MICHELLE: 04/22/25 09:[address]: Elke White DEPT: [facility] Surgical RECD BY: Liat Chow ENTERED: 04/22/25 10:23 SP TYPE: Surgical OTHR DR: Oswaldo Arthur MD Tissues: A - Breast Biopsy Procedures: Hematoxylin and Eosin Stain Gross and Microscopic Level 4
== END 2025-04-22 08:20 | disposition home or self-care (01) ==
LOC: ANHIMG 08:20
PROVIDERS: PCP Family Medicine; Visit Provider Surgery
DX: N64.1 Fat necrosis of breast (principal); N63.11 Unspecified lump in the right breast, upper outer quadrant; N63.10 Unspecified lump in the right breast, unspecified quadrant; R92.8 Other abnormal and inconclusive findings on diagnostic imaging of breast; N64.4 Mastodynia
CPT/HCPCS: 19083; 77065; 88305; A4648

== ENCOUNTER 2025-06-18 12:45 | Outpatient (CLI) | payer OTHER, SELFPAY ==
[2025-06-18 13:50] LABS: Free T4 Free Thyroxine 0.88 ng/dL (0.78-2.19)
[2025-06-18 14:00] LABS: Thyroid Stimulating Hormone 0.257 uIU/mL (0.465-4.680)
== END 2025-06-18 12:46 | disposition home or self-care (01) ==
LOC: ANHLAB 12:46
PROVIDERS: PCP Family Medicine; Visit Provider Internal Medicine Endocrinology, Diabetes & Metabolism
DX: R79.89 Other specified abnormal findings of blood chemistry (principal)
CPT/HCPCS: 36415; 84439; 84443

== ENCOUNTER 2025-09-08 11:17 | Outpatient (CLI) | payer OTHER, SELFPAY ==
[2025-09-08 11:56] LABS: Hematocrit 36.8 % (37.0-47.0); Hemoglobin 12.5 g/dL (12.0-15.0); Immature Granulocyte Percent A 0.3 % (0-0.5); Lymphocytes Absolute Auto 1.97 K/mm3 (0.9-3.2); Mean Corpuscular HGB Conc 34.0 g/dl (32-36); Mean Corpuscular Hemoglobin 32.0 pg (26-34); Mean Corpuscular Volume 94.1 fl (80-100); Nucleated Red Blood Cells Absolute Auto 0.000 K/mm3 (0.0-0.012); Nucleated Red Blood Cells Perc 0.0 % (0.0-0.2); Platelet Count Result 237 k/mm3 (150-375); Red Blood Count 3.91 M/mm3 (4.2-5.4); White Blood Count 7.5 K/mm3 (4.5-10.0)
[2025-09-08 12:24] LABS: Cholesterol 241 mg/dL (0-200); HDL Direct 45 mg/dL; Triglycerides 318 mg/dL (<150)
[2025-09-08 12:29] LABS: Alanine Aminotransferase 66 U/L (6-35); Albumin Level 4.1 g/dL (3.5-5.1); Alkaline Phosphatase 55 U/L (38-126); Anion Gap 9 mmol/L (4-12); Aspartate Amino Transferase 45 U/L (14-36); Bilirubin,Total 0.3 mg/dL (0.2-1.3); Blood Urea Nitrogen 8 mg/dL (7-17); Calcium 8.8 mg/dL (8.4-10.2); Carbon Dioxide 23 mmol/L (22-30); Chloride 103 mmol/L (98-107); Estimated Glomerular Filt Rate > 60; Glucose 90 mg/dL (65-110); Potassium 4.1 mmol/L (3.4-5.0); Sodium 135 mmol/L (137-145); Total Protein 7.1 g/dL (6.3-8.2)
[2025-09-08 12:35] LABS: Beta HCG Quantitative < 2.39 mIU/ML
[2025-09-08 12:42] LABS: Free T4 Free Thyroxine 0.85 ng/dL (0.78-2.19)
[2025-09-08 12:59] LABS: Thyroid Stimulating Hormone 0.623 uIU/mL (0.465-4.680)
--- OUTSIDE RECORDS SUMMARY | 2025-09-08 14:13 | XMS_ITS | Clinical Summary ---
Author Organization [facility] Address [address] [place] [address] Care Team Providers Care Miter Grinder Operator Name Role Phone Oswaldo Arthur MD Primary [...] P M CDT Height 162.6 cm (5' 4) 03/08/2021 1:50 PM CDT Body Mass Index 29.76 03/08/2021 1:50 PM CDT Plan of Treatment Not on file Insurance [facility] Care Teams Miter Grinder Operator Relationship Specialty Start Date End Date Schueler, Oswaldo F., MD PCP - General Family Medicine 02/16/21
[2025-09-08 16:01] LABS: Hemoglobin A1C 4.8 % (<5.7)
[2025-09-09 10:08] LABS: FSH 8.7 mIU/mL (.); LH 4.5 mIU/mL (.)
[2025-09-11 02:07] LABS: Free Testosterone (Direct) 1.9 pg/mL (0.0-4.2)
[2025-09-13 15:08] LABS: Estradiol, Sensitive 40.3 pg/mL (.)
== END 2025-09-08 11:18 | disposition home or self-care (01) ==
PROVIDERS: Nurse Practitioner Obstetrics & Gynecology; PCP Family Medicine; Referring Provider Internal Medicine Endocrinology, Diabetes & Metabolism
DX: N91.1 Secondary amenorrhea (principal); E05.90 Thyrotoxicosis, unspecified without thyrotoxic crisis or storm; E55.9 Vitamin D deficiency, unspecified; Z13.220 Encounter for screening for lipoid disorders
CPT/HCPCS: 36415; 80053; 80061; 82306; 82670; 83001; 83002; 83036; 83525; 84146; 84402; 84403; 84439; 84443; 84702; 85025

== ENCOUNTER 2025-09-08 11:48 | Outpatient (CLI) | payer OTHER, SELFPAY ==
--- NOTE | ~2025-09-08 | US_ITS ---
EXAMINATION: US pelvic complete w TV, 09/08/2025 11:51 CDT HISTORY: R10.2 - Pelvic and perineal pain Comparison: None Technique: -scale and color Doppler images were obtained. Findings: Uterus: Uterus anteverted 8.9 x 4.2 x 5.7 cm. . Endometrium 5 mm. Right Ovary:Right ovary 3.5 x 2.1 x 3.7 cm, with dominant follicle 2.6 x 2.5 cm, no adnexal mass, normal flow. Left Ovary: Left ovary 3.3 x 1.7 x 2.4 cm, no adnexal mass, normal flow. Free Fluid: None Impression: No acute abnormality. Reviewed, dictated and finalized at location P. Impression: No acute abnormality.
== END 2025-09-08 11:49 | disposition home or self-care (01) ==
LOC: MICIMG 11:48
PROVIDERS: PCP Family Medicine; Visit Provider Nurse Practitioner Obstetrics & Gynecology
DX: R10.20 Pelvic and perineal pain unspecified side (principal)
CPT/HCPCS: 76830; 76856

== ENCOUNTER 2025-09-22 12:33 | Outpatient (CLI) | payer OTHER, SELFPAY ==
--- OUTSIDE RECORDS SUMMARY | 2025-09-22 14:18 | XMS_ITS | Clinical Summary ---
Author Organization [facility] Address [address] [place] [address] Care Team Providers Care Hand Trimmer Name Role Phone Unavailable Primary Care Provider Unavailabl e Source Comments [facility],non-owned Affiliates and Associated Physician Practices is amultiple site organization consisting of ambulatory clinics and hospital sitesin [place], [place], [place] and [place]. This disclosure is being madepursuant to the Care Everywhere program and may not contain all information available regarding this patient. Last updated 18.[facility] Allergies No known active allergies Medications * [...] Comments Blood Pressure 108/64 12/07/2017 6:31 PM MUSIC ORCHESTRATOR Pulse 77 12/07/2017 6:31 PM MUSIC ORCHESTRATOR Temperature 36.7 C (98 F) 12/07/2017 6:31 PM MUSIC ORCHESTRATOR Respiratory Rate 16 12/07/2017 6:31 PM MUSIC ORCHESTRATOR Oxygen Saturation 98% 12/07/2017 6:31 PM MUSIC ORCHESTRATOR Inhaled Oxygen Concentration - - Weight 72.6 kg (160 lb) 12/07/2017 6:31 PM MUSIC ORCHESTRATOR Height 162.6 cm (5' 4) 12/07/2017 6:31 PM MUSIC ORCHESTRATOR Body Mass Index 27.46 12/07/2017 6:31 PM MUSIC ORCHESTRATOR Plan of Treatment Health Maintenance Due Date Last Done Comments LIPID TESTING 1984 MAMMOGRAM 1984 HIV SCREENING 1999 HEPATITIS C SCREENING 11/01/2002 DTAP/TDAP/TD VACCINES (1 - Tdap) 2003 HEPATITIS B VACCINE (1 of 3 - 19+ 3-dose series) 2003 PNEUMOCOCCAL VACCINE (1 of 2 - PCV) 2003 PAP SMEAR 2005 HPV VACCINE (1 - 3-dose SCDM series) 2011 DEPRESSION SCREENING 11/19/2024 COVID-19 VACCINE (1 - 2023-2 5 season) 2025 INFLUENZA VACCINE (#1) 2025 ZOSTER VACCINE (1 of 2) 2034 HIB VACCINE Aged Out No longer eligi ble based on patient's age to complete this topic MENINGOCOCCAL (Group B) VACC INE SHARED DECISION-MAKING Aged Out No longer eligibl e based on patient's age to complete this topic MENINGOCOCCAL GROUPS A/C/Y/W VACCINE Aged Out No longer eligible b ased on patient's age to complete this topic Insurance [facility] Address: [facility] [id number] [place] [address] * Guarantor: LÓPEZ AGUILAR Account Type Relation to Patient Date of Phone Billing Address Personal/Family Spouse
--- OUTSIDE RECORDS SUMMARY | 2025-09-22 14:18 | XMS_ITS | Clinical Summary ---
Author Organization [facility] Address [address] [place] [address] Care Team Providers Care Tree Specialist Name Role Phone Oswaldo Arthur MD Primary [...] [facility] PPO Care Teams Tree Specialist Relationship Specialty Start Date End Date Oswaldo Arthur MD PCP - General Family Medicine 02/16/21
--- NOTE | 2025-10-06 16:38 | WPDHOLTEREM ---
Holter/Event Monitor Holter/Event Monitor Date of procedure: 09/22/25 Holter/Event Procedure: 3-7 Day Holter Monitor Indications: Tachycardia Conclusion: 1. 5 days holter monitor on 09/22/25. 2. Underlying rhythm is sinus rhythm. HR range 53-147 bpm; average HR 85 bpm. 3. There are rare premature supraventricular complexes. No supraventricular tachycardia. 4. There are rare premature ventricular complexes. No ventricular tachycardia. 5. No significant pauses greater than 3 seconds. 6. Patient reports 1 episode of symptom of chest pain and heart racing which demonstrates sinus rhythm at 76 bpm.
== END 2025-09-22 12:34 | disposition home or self-care (01) ==
LOC: ANHCARD 12:34
PROVIDERS: PCP Family Medicine
DX: R94.31 Abnormal electrocardiogram [ECG] [EKG] (principal); R00.0 Tachycardia, unspecified; R00.2 Palpitations; E05.90 Thyrotoxicosis, unspecified without thyrotoxic crisis or storm
CPT/HCPCS: 93242